=== PATIENT | female | born 2005 | race Caucasian/White ===

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

== ENCOUNTER 2024-06-20 19:19 | Emergency (ER) | payer MEDICAID, SELFPAY ==
[2024-06-20 19:25] VITALS: BP 108/74; PULSE 98; RESP 16; TEMP 36.7; O2SAT 98; BMI 29.7
[2024-06-20 19:54] LABS: Basophils % 0.1 %; Eosinophils # 0.1 10^3/uL (0.0-0.8); Eosinophils % 0.6 %; Hematocrit 36.8 % (36-47); Lymphocytes # 0.9 10^3/uL (1.5-6.5); Lymphocytes % 10.5 %; Mean Corpuscular HGB Conc 35.3 g/dL (30-55); Mean Corpuscular Hemoglobin 31.2 pg (27-33); Mean Corpuscular Volume 88.2 fl (85-98); Mean Platelet Volume 10.1 fL (7.4-10.4); Monocytes # 0.4 10^3/uL (0.2-0.9); Monocytes % 4.3 %; Neutrophils % 84.1 %; Nucleated Red Blood Cells % 0 %; Platelet Count 234 10^3/cmm (157-399); Red Blood Count 4.17 10^6/uL (3.85-5.65); Red Cell Distribution Width 12.6 % (12.1-15.1); White Blood Count 8.92 10^3/uL (4.5-13.0)
[2024-06-20 20:23] LABS: Alanine Aminotransferase 48 U/L (0-33); Alkaline Phosphatase 89 U/L (35-105); Anion Gap 15.6 (5-19); Aspartate Amino Transferase 30 U/L (0-32); Blood Urea Nitrogen 6 mg/dL (6-20); Calcium 8.9 mg/dL (8.5-10.5); Carbon Dioxide 22 mmol/L (22-29); Chloride 101 mmol/L (98-107); Creatinine Clr Calc Pharmacy 155.4888; Globulin 3.3 g/dL (1.3-4.6); Glomerular Filtration Rate 157.3 mL/min (90-130); Glucose 75 mg/dL (65-115); Osmolality Calculated 276 mOsm/kg (285-295); Potassium 3.6 mmol/L (3.5-5.1); Sodium 135 mmol/L (136-145); Total Bilirubin 0.4 mg/dL (0.15-1.2); Total Protein 7.3 g/dL (6.6-8.7)
[2024-06-20 21:00] VITALS: BP 117/81; PULSE 76; RESP 16; O2SAT 100
--- NOTE | 2024-06-20 21:02 | ED_ITS ---
HPI - Abdominal Pain 2 General: Chief Complaint: Abdominal Pain Stated Complaint: Cramping, 13 wks preg Time Seen by Provider: 06/20/24 20:36 Source: patient Mode of arrival: ambulatory Limitations: no limitations History of Present Illness: 19-year-old female who is currently 13 w eeks states over the last few days been having diarrhea states she is felt dehydrated has had some abdominal cramping send mild headache. She denies any severe pain denies any vaginal bleeding. Denies any fevers Associated Symptoms: Reports diarrhea; Denies chills, fever(s), nausea and vomiting Related Data Previous Rx's Medication Instructions Recorded amoxicillin 500 mg capsule 500 mg PO BID #14 caps 07/07/23 Allergies Allergy/AdvReac Type Severity Reaction Status Date / Time No Known Allergies Allergy Verified 06/20/24 19:30 Review of Systems 2 Const: Denies: fever(s), chills, body aches or change in appetite ENMT: Denies: throat pain or dental pain Card: Denies: chest pain Resp: Denies: dyspnea GI: Reports: abdominal pain and diarrhea; Denies: nausea or vomiting Musc: Denies: neck pain or back pain Skin/Breast: Denies: rash Neuro: Denies: headache(s) PFSH ED 2 PFSH: Medical History Chest wall pain, chronic Well adult health check Surgical History No pertinent past surgical history Family History Father No problems noted. Mother Bicuspid aortic valve Social History Smoking and tobacco/nicotine status: former use of tobacco/nicotine Quit status (tobacco/nicotine): has quit using Second hand smoke exposure: No Alcohol intake: never Substance/Drug Use: never Current gender identity: Female Physical Exam 2 Const: COMMON NORMALS: no acute distress, patient oriented x3 and healthy appearing HENMT: COMMON NORMALS: normocephalic and atraumatic HEAD & SCALP: n ormocephalic and atraumatic Eye: COMMON NORMALS: conjunctivae normal CONJUNCTIVA: Yes conjunctivae normal Neck/C-Spine: COMMON NORMALS: full ROM and supple Chest: COMMONS NORMALS: normal inspection of the chest Resp: COMMON NORMALS: normal respiratory effort Cardio: COMMON NORMALS: regular rate, regular rhythm and No murmurs present (Cardio) RATE: regular rate RHYTHM: regular rhythm GI: COMMON NORMALS: Normal to inspection, nondistended, normoactive bowel sounds present, Soft to palpation, non-tender and no masses PALPATION: Yes Soft to palpation Extremity: COMMON NORMALS: normal to inspection and full ROM Neuro: COMMON NORMALS: patient oriented x3, moves all extremities and no focal motor deficits Psych: COMMON NORMALS: mental status grossly normal, Normal thought process present and cooperative THOUGHT PROCESS: Normal thought process present Skin: COMMON NORMALS: no rashes or lesions noted and no wounds GENERAL SKIN EXAM: no rashes or lesions noted Course 2 Vital Signs: Vital signs: Vital Signs Temperature 98.1 F 06/20/24 19:25 Pulse Rate 84 06/20/24 21:46 Respiratory Rate 16 06/20/24 21:46 Blood Pressure 111/82 06/20/24 21:46 Pulse Oximetry 100 06/20/24 21:46 Oxygen Delivery Me thod Room Air 06/20/24 21:46 MDM - Abdominal Pain Medical Decision Making Patient presents here with cramping in her abdominal exam is benign for some slight diarrhea as well she feels improved after IV fluids bedside ultrasound showed IUP heart rate 146 patient stable for discharge follow- up PCP return if worsening Medical Records I reviewed the patient's medical records. Lab Data I reviewed the patient's lab results. 06/20/24 19:45 06/20/24 19:45 Labs/Radiology: Laboratory Results WBC 8.92 10^3/uL (4.5-13.0) 06/20/24 19:45 RBC 4.17 10^6/uL (3.85-5.65) 06/20/24 19:45 Hgb 13.00 g/dL (12.4-14.8) 06/20/24 19:45 Hct 36.8 % (36-47) 06/20/24 19:45 MCV 88.2 fl (85-98) 06/20/24 19:45 MCH 31.2 pg (27-33) 06/20/24 19:45 MCHC 35.3 g/dL (30-55) 06/20/24 19:45 RDW 12.6 % (12.1-15.1) 06/20/24 19:45 Plt Count 234 10^3/cmm (157-399) 06/20/24 19:45 MPV 10.1 fL (7.4-10.4) 06/20/24 19:45 Neut % (Auto) 84.1 % 06/20/24 19:45 Lymph % (Auto) 10.5 % 06/20/24 19:45 [place] % (Auto) 4.3 % 06/20/24 19:45 Eos % (Auto) 0.6 % 06/20/24 19:45 Baso % (Auto) 0.1 % 06/20/24 19:45 Neut # (Auto) 7.50 10^3/uL (1.8-8.0) 06/20/24 19:45 Lymph # (Auto) 0.9 10^3/uL (1.5-6.5) L 06/20/24 19:45 [place] # (Auto) 0.4 10^3/uL (0.2-0.9) 06/20/24 19:45 Eos # (Auto) 0.1 10^3/uL (0.0-0.8) 06/20/24 19:45 Baso # (Auto) 0.0 10^3/uL (0.0-0.1) 06/20/24 19:45 Nucleated RBC % (auto) 0 % 06/20/24 19:45 Nucleated RBCs # 0.0 /100WBC 06/20/24 19:45 Sodium 135 mmol/L (136-145) L 06/20/24 19:45 Potassium 3.6 mmol/L (3.5-5.1) 06/20/24 19:45 Chloride 101 mmol/L (98-107) 06/20/24 19:45 Carbon Dioxide 22 mmol/L (22-29) 06/20/24 19:45 Anion Gap 15.6 (5-19) 06/20/24 19:45 BUN 6 mg/dL (6-20) 06/20/24 19:45 Creatinine 0.5 mg/dL (0.5-0.9) 06/20/24 19:45 GFR Calculation 157.3 mL/min (90-130) H 06/20/24 19:45 Glucose 75 mg/dL (65-115) 06/20/24 19:45 Calculated Osmolality 276 mOsm/kg (285-295) L 06/20/24 19:45 Calcium 8.9 mg/dL (8.5-10.5) 06/20/24 19:45 Total Bilirubin 0.4 mg/dL (0.15-1.2) 06/20/24 19:45 AST 30 U/L (0-32) 06/20/24 19:45 ALT 48 U/L (0-33) H 06/20/24 19:45 Alkaline Phosphatase 89 U/L (35-105) 06/20/24 19:45 Total Protein 7.3 g/dL (6.6-8.7) 06/20/24 19:45 Albumin 4.0 g/dL (3.5-5.2) 06/20/24 19:45 Globulin 3.3 g/dL (1.3-4.6) 06/20/24 19:45 Ser , Semi-Qnt 363749.00 mIU/mL 06/20/24 19:45 Urine Color Yellow (Yellow) 06/20/24 20:57 Urine Appearance Clear (CLEAR) 06/20/24 20:57 Urine pH 7.0 (5-7) 06/20/24 20:57 Ur Specific [place] 1.019 (1.005-1.030) 06/20/24 20:57 Urine Protein Trace (Negative) A 06/20/24 20:57 Urine Glucose (UA) Negative (Normal) 06/20/24 20:57 Urine Ketones Negative (Negative) 06/20/24 20:57 Urine Blood Negative (Negative) 06/20/24 20:57 Urine Nitrate Negative (Negative) 06/20/24 20:57 Urine Bilirubin Negative (Negative) 06/20/24 20:57 Urine Urobilinogen 1.0 mg/dL (Negative) 06/20/24 20:57 Ur Leukocyte Esterase 1+ (Negative) A 06/20/24 20:57 Urine RBC 0-2 /hpf (0-2) 06/20/24 20:57 Urine WBC 0-5 /hpf (0-5) 06/20/24 20:57 Ur Squamous Epith Cells 6-10 /hpf (0-5) 06/20/24 20:57 Amorphous Sediment Not Reportable 06/20/24 20:57 Urine Bacteria Trace /hpf (NONE) 06/20/24 20:57 Hyaline Casts 0.40 /lpf 06/20/24 20:57 Blood Type O Positive 06/20/24 19:45 Rho(D) Type Rh positive 06/20/24 19:45 Antibody Screen Negative 06/20/24 19:45 No radiology studies performed this visit Discharge Plan Discharge Patient Disposition: Home Clinical Impression: Diarrhea, Abdominal pain affecting Condition: Stable Prescriptions: No Action amoxicillin 500 mg capsule 500 mg PO BID Qty: 14 0RF Discharge Orders: Discharge ED (Routine); Ordered 06/20/24 Ordered By: Nanette Oro Referrals: Mukesh Hope MD [Primary Care Provider] - 4-7 days Discharge Diet: Advance as tolerated Discharge Activity: Resume usual activity Patient Instructions: Acute Diarrhea (ED), Abdominal Pain (ED) Coding Level of Care Code 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
[2024-06-20 21:08] LABS: Bilirubin Urine Negative (Negative); Blood Urine Negative (Negative); Glucose Urine UA Negative (Normal); Ketones Urine Negative (Negative); Leukocyte Esterase Urine 1+ (Negative); Nitrate Urine Negative (Negative); Protein Urine Trace (Negative); Specific Gravity, Urine 1.019 (1.005-1.030); Urine Appearance Clear (CLEAR); Urine Color Yellow (Yellow)
[2024-06-20 21:13] LABS: Add Urine Microscopic? YES; Bacteria Urine Trace /hpf; RBC Urine 0-2 /hpf (0-2); WBC Urine 0-5 /hpf (0-5)
[2024-06-20] MEDS: sodium chloride 0.9% 1,000 ML 999 ML IV (21:35)
[2024-06-20] MEDS: metoclopramide 5 mg/mL SDV 2 mL 10 MG IVP (21:37)
[2024-06-20] MEDS: diphenhydrAMINE 50 mg/mL SDV 1mL IVP (21:40)
[2024-06-20 21:46] VITALS: BP 111/82; PULSE 84; RESP 16; O2SAT 100
[2024-06-20 22:42] VITALS: BP 112/68; PULSE 79; RESP 16; O2SAT 100
== END 2024-06-20 22:42 | disposition home or self-care (01) ==
PROVIDERS: Emergency Provider Emergency Medicine; PCP Family Medicine Adult Medicine
DX: O26.891 Other specified pregnancy related conditions, first trimester (principal); Z3A.13 13 weeks gestation of pregnancy; R10.9 Unspecified abdominal pain; R19.7 Diarrhea, unspecified; Z87.891 Personal history of nicotine dependence
CPT/HCPCS: 36415; 80053; 81001; 84702; 85025; 86850; 86900; 96361; 96374; 96375; 99284; J1200; J2765; J7030

== ENCOUNTER 2024-07-29 12:29 | Emergency (ER) | payer MEDICAID, SELFPAY ==
--- NOTE | 2024-07-29 12:31 | USCV_ITS ---
Randa Garner Age: 19 Gender: F : 2005 Exam Date: 07/29/2024 13:24 Ordering Phys: Nanette Oro MD Technologist: R Exam Location: [facility] [place]_ Indication: lt leg swelling PROCEDURES: Venous duplex imaging was performed in only the left lower extremity. The following venous structures were evaluated: common femoral vein, profunda vein, proximal portion of the greater saphenous vein, superficial femoral vein, and the popliteal vein. In addition, the posterior tibial and peroneal trunk were evaluated. FINDINGS: Normal 2-D Doppler and augmentation and compressibility throughout the lower extremity venous structures. Additional imaging through the proximal calf veins also reveals no thrombus. Limited evaluation of the greater saphenous vein is patent with no thrombus. CONCLUSIONS No DVT left lower extremity. Dr. Dulce Maria Ibarra DO (Electronically Signed) Final Date: 29 July 2024 15:45 S
[2024-07-29 12:37] VITALS: BP 108/67; TEMP 36.7; O2SAT 100; BMI 30.2
[2024-07-29 13:07] VITALS: BP 113/72; PULSE 101; RESP 16; O2SAT 99
[2024-07-29 13:48] VITALS: BP 105/63; PULSE 91; RESP 16; O2SAT 98
[2024-07-29 14:40] VITALS: BP 98/67; PULSE 85; RESP 16; O2SAT 99
[2024-07-29 15:01] LABS: Bilirubin Urine 1+ (Negative); Blood Urine Negative (Negative); Glucose Urine UA Negative (Normal); Ketones Urine Trace (Negative); Leukocyte Esterase Urine 2+ (Negative); Nitrate Urine Positive (Negative); Protein Urine 1+ (Negative); Specific Gravity, Urine 1.029 (1.005-1.030); Urine Appearance Cloudy (CLEAR)
--- NOTE | 2024-07-29 15:05 | W.ED.EXTPRO ---
HPI - Extremity Problem General: Chief complaint: Extremity Problem,Nontraumatic Stated complaint: leg swelling & Knots 19 weeks preg Time Seen by Provider: 07/29/24 13:01 Source: patient Mode of arrival: ambulatory Limitations: no limitations History of Present Illness: Patient is a 19-year-old female who is 19 weeks who presents to the emergency department complaining of bilateral anterior dominguez pain and swelling for the past couple of weeks. Initially this began to her left anterior dominguez, was consistent with a bruise but is slowly gotten more widespread, tender to palpation, and erythematous. She has never had an issue like this before. States that she has not had any complications with her up to this point, aside from an elevated blood pressure with her last OB visit. Additionally at this time she is reporting a minor headache. She has not taken anything for her leg symptoms or tried anything at home. Denies any recent prolonged car rides or flights, and has no reportable or clinical history of blood clots. No history of blood clots. She is not having any shortness of breath, chest pain, abdominal pain, vaginal bleeding, or other symptoms at this time. MD Complaint: extremity pain and extremity swelling Onset (ago): week(s) Pain Consistency: constant Location: left, right and lower extremity Associated symptoms: Deny chest pain, fever(s) or rash Related Data Previous Rx's Medication Instructions Recorded amoxicillin 500 mg capsule 500 mg PO BID #14 caps 07/07/23 nitrofurantoin 100 mg PO BID 10 days #20 caps 07/29/24 monohydrate/macrocrystals 100 mg capsule (Macrobid) Allergies Allergy/AdvReac Type Severity Reaction Status Date / Time No Known Allergies Allergy Verified 07/29/24 12:42 Review of Systems General: Reports: 10 or more systems reviewed and unremarkable except in HPI and below Const: Denies: fever(s) or chills Card: Denies: chest pain Resp: Denies: dyspnea GI: Denies: abdominal pain, nausea, vomiting or diarrhea Musc: Reports: extremity pain (Bilateral shins) and extremity swelling (Bilateral dominguez); Denies: joint pain Skin/Breast: Reports: erythema and non-healing lesions; Denies: rash Neuro: Denies: headache(s) PFSH ED PFSH: Medical History Chest wall pain, chronic Well adult health check Surgical History No pertinent past surgical history Family History Father No problems noted. Mother Bicuspid aortic valve Social History Smoking and tobacco/nicotine status: former use of tobacco/nicotine Quit status (tobacco/nicotine): has quit using Second hand smoke exposure: No Alcohol intake: never Substance/Drug Use: never Current gender identity: Female Physical Exam Const: COMMON NORMALS: no acute distress, average body habitus, patient oriented x3, no limitations, healthy appearing, alert and well nourished HENMT: COMMON NORMALS: normocephalic and atraumatic HEAD & SCALP: normocephalic and atraumatic Neck/C-Spine: COMMON NORMALS: full ROM, no lymphadenopathy, supple and no meningeal signs Resp: COMMON NORMALS: normal respiratory effort, No use of accessory muscles and clear to auscultation bilaterally AUSCULTATION: clear to auscultation bilaterally Cardio: COMMON NORMALS: regular rate and regular rhythm RATE: regular rate RHYTHM: regular rhythm Extremity: COMMON NORMALS: full ROM and capillary refill normal NARRATIVE EXTREMITY EXAM: DP/PT pulses 2+ bilaterally. No calf tenderness. No pitting edema or varicosities. Neuro: COMMON NORMALS: patient oriented x3 SENSORIUM/ORIENTATION: Yes alert MENINGEAL SIGNS: Yes no meningeal signs Skin: COMMON NORMALS: no wounds and turgor normal NARRATIVE SKIN EXAM: To both anterior shins, there is circumferential erythematous and indurated lesions, left worse than right. These areas are tender to palpation. GENERAL SKIN EXAM: turgor normal Course Vital Signs: Vital signs: Vital Signs Temperature 98.1 F 07/29/24 12:37 Pulse Rate 84 07/29/24 16:06 Respiratory Rate 18 07/29/24 16:06 Blood Pressure 96/57 07/29/24 16:06 Pulse Oximetry 100 07/29/24 16:06 Oxygen Delivery Me thod Room Air 07/29/24 15:25 MDM - Extremity (Nontraumatic) Medical Decision Making Patient presented with skin changes to bilateral shins occurring over the past couple of weeks. She is in her second trimester of . Initially ultrasound was ordered to rule out blood clot in the left lower extremity as this was the worst of the 2 areas, but she had no other physical exam findings of a blood clot. No calf tenderness, pulses palpable distally and symmetrical, and no history of blood clots. Pictures of the rashes were sent to Dr. Farnsworth, chief pharmacist, who states that this appears to be erythema nodosum and can be treated conservatively. Also spoke with on-call OB, Dr. Lemus, who states that he does not believe that this is related to anything to do with . Patient reporting headache and stated that she had high blood pressure with the last visit so labs were obtained here to rule out any preeclampsia, her blood pressures have been normal and no lab findings consistent with the preeclampsia diagnosis, this was also discussed with Dr. Lemus. Informed patient of conservative therapies for her erythema nodosum and for her to follow-up with OB as scheduled. She agrees with plan will be discharged home at this time. Lab Data 07/29/24 15:10 07/29/24 15:10 Laboratory Results WBC 10.92 10^3/uL (4.5-13.0) 07/29/24 15:10 RBC 3.53 10^6/uL (3.85-5.65) L 07/29/24 15:10 Hgb 11.30 g/dL (12.4-14.8) L 07/29/24 15:10 Hct 32.9 % (36-47) L 07/29/24 15:10 MCV 93.2 fl (85-98) 07/29/24 15:10 MCH 32.0 pg (27-33) 07/29/24 15:10 MCHC 34.3 g/dL (30-55) 07/29/24 15:10 RDW 13.3 % (12.1-15.1) 07/29/24 15:10 Plt Count 303 10^3/cmm (157-399) 07/29/24 15:10 MPV 9.6 fL (7.4-10.4) 07/29/24 15:10 Neut % (Auto) 84.0 % 07/29/24 15:10 Lymph % (Auto) 10.6 % 07/29/24 15:10 [place] % (Auto) 4.1 % 07/29/24 15:10 Eos % (Auto) 0.6 % 07/29/24 15:10 Baso % (Auto) 0.2 % 07/29/24 15:10 Neut # (Auto) 9.17 10^3/uL (1.8-8.0) H 07/29/24 15:10 Lymph # (Auto) 1.2 10^3/uL (1.5-6.5) L 07/29/24 15:10 [place] # (Auto) 0.5 10^3/uL (0.2-0.9) 07/29/24 15:10 Eos # (Auto) 0.1 10^3/uL (0.0-0.8) 07/29/24 15:10 Baso # (Auto) 0.0 10^3/uL (0.0-0.1) 07/29/24 15:10 Nucleated RBC % (auto) 0 % 07/29/24 15:10 Nucleated RBCs # 0.0 /100WBC 07/29/24 15:10 Sodium 138 mmol/L (136-145) 07/29/24 15:10 Potassium 4.2 mmol/L (3.5-5.1) 07/29/24 15:10 Chloride 105 mmol/L (98-107) 07/29/24 15:10 Carbon Dioxide 23 mmol/L (22-29) 07/29/24 15:10 Anion Gap 14.2 (5-19) 07/29/24 15:10 BUN 6 mg/dL (6-20) 07/29/24 15:10 Creatinine 0.5 mg/dL (0.5-0.9) 07/29/24 15:10 GFR Calculation 157.3 mL/min (90-130) H 07/29/24 15:10 Glucose 102 mg/dL (65-115) 07/29/24 15:10 Calculated Osmolality 284 mOsm/kg (285-295) L 07/29/24 15:10 Uric Acid 3.9 mg/dL (2.4-5.7) 07/29/24 15:10 Calcium 8.4 mg/dL (8.5-10.5) L 07/29/24 15:10 Total Bilirubin 0.6 mg/dL (0.15-1.2) 07/29/24 15:10 AST 52 U/L (0-32) H 07/29/24 15:10 ALT 67 U/L (0-33) H 07/29/24 15:10 Alkaline Phosphatase 136 U/L (35-105) H 07/29/24 15:10 Total Protein 6.5 g/dL (6.6-8.7) L 07/29/24 15:10 Albumin 3.3 g/dL (3.5-5.2) L 07/29/24 15:10 Globulin 3.2 g/dL (1.3-4.6) 07/29/24 15:10 Urine Color [place] (Yellow) A 07/29/24 14: Urine Appearance Cloudy (CLEAR) A 07/29/24 14: Urine pH 6.0 (5-7) 07/29/24 14:28 Ur Specific [place] 1.029 (1.005-1.030) 07/29/24 14: Urine Protein 1+ (Negative) A 07/29/24 14: Urine Glucose (UA) Negative (Normal) 07/29/24 14:28 Urine Ketones Trace (Negative) 07/29/24 14: Urine Blood Negative (Negative) 07/29/24 14: Urine Nitrate Positive (Negative) A 07/29/24 14: Urine Bilirubin 1+ (Negative) H 07/29/24 14: Urine Urobilinogen 4.0 mg/dL (Negative) H 07/29/24 14:28 Ur Leukocyte Esterase 2+ (Negative) A 07/29/24 14: Urine RBC 3-5 /hpf (0-2) 07/29/24 14:28 Urine WBC 11-20 /hpf (0-5) H 07/29/24 14:28 Ur Squamous Epith Cells 6-10 /hpf (0-5) 07/29/24 14:28 Calcium Oxalate Crystal 15-25 /hpf H 07/29/24 14:28 Amorphous Sediment Not Reportable 07/29/24 14:28 Urine Bacteria 3+ /hpf (NONE) H 07/29/24 14:28 Hyaline Casts 6.61 /lpf 07/29/24 14:28 Ur Random Microalbumin 1 ug/dL (0-20) 07/29/24 14:28 Urine Creatinine 337 mg/dL (28-217) H 07/29/24 14:28 Microalb/Creat Ratio 3 mg/dL (0-20) 07/29/24 14:28 All radiology interpretation(s) finalized by discharge Discharge Plan Discharge Patient Disposition: Home Clinical Impression: Erythema nodosum, Complicated urinary tract infection Condition: Stable Prescriptions: New nitrofurantoin monohyd/m-cryst [Macrobid] 100 mg capsule 100 mg PO BID 10 Days Qty: 20 0RF Rx Instructions: must administer with a meal/food No Action amoxicillin 500 mg capsule 500 mg PO BID Qty: 14 0RF Discharge Orders: Discharge ED (Routine); Ordered 07/29/24 Ordered By: Gavin Mcneal Referrals: Mukesh Hpoe MD [Primary Care Provider] - Patient Instructions: Urinary Tract Infection in (ED) Activity Restrictions/Additional Instructions: Please take Macrobid for your urinary tract infection. Follow up with Dr. Duarte next week for general re-evaluation. Bed rest, compression stockings, cool wet compresses, elevation, and acetaminophen for pain relief in your legs. Please return if you develop any high blood pressures, seizures, or other concerning symptoms you may have. 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
[2024-07-29 15:06] LABS: Add Urine Microscopic? YES; Bacteria Urine 3+ /hpf; Hyaline Casts Urine 6.61 /lpf
[2024-07-29 15:21] LABS: Basophils % 0.2 %; Eosinophils # 0.1 10^3/uL (0.0-0.8); Eosinophils % 0.6 %; Hematocrit 32.9 % (36-47); Lymphocytes # 1.2 10^3/uL (1.5-6.5); Lymphocytes % 10.6 %; Mean Corpuscular HGB Conc 34.3 g/dL (30-55); Mean Corpuscular Volume 93.2 fl (85-98); Mean Platelet Volume 9.6 fL (7.4-10.4); Monocytes # 0.5 10^3/uL (0.2-0.9); Monocytes % 4.1 %; Neutrophils # 9.17 10^3/uL (1.8-8.0); Nucleated Red Blood Cells % 0 %; Platelet Count 303 10^3/cmm (157-399); Red Blood Count 3.53 10^6/uL (3.85-5.65); Red Cell Distribution Width 13.3 % (12.1-15.1); White Blood Count 10.92 10^3/uL (4.5-13.0)
[2024-07-29 15:25] VITALS: BP 100/61; PULSE 83; RESP 16; O2SAT 100
[2024-07-29 15:25] LABS: Creatinine Urine, Random 337 mg/dL (28-217); Microalbum Creatinine Ratio Ur 3 mg/dL (0-20); Microalbumin Random Urine 1 ug/dL (0-20)
[2024-07-29 15:37] LABS: UA Slide Review UA Slide Review Perf; Urine Color Orange (Yellow)
[2024-07-29 15:38] LABS: Add Urine Culture? Yes; Calcium Oxalate Crystals Urine 15-25 /hpf
[2024-07-29 15:43] LABS: Alanine Aminotransferase 67 U/L (0-33); Albumin Level 3.3 g/dL (3.5-5.2); Alkaline Phosphatase 136 U/L (35-105); Anion Gap 14.2 (5-19); Aspartate Amino Transferase 52 U/L (0-32); Blood Urea Nitrogen 6 mg/dL (6-20); Calcium 8.4 mg/dL (8.5-10.5); Carbon Dioxide 23 mmol/L (22-29); Chloride 105 mmol/L (98-107); Creatinine Clr Calc Pharmacy 157.0313; Globulin 3.2 g/dL (1.3-4.6); Glomerular Filtration Rate 157.3 mL/min (90-130); Glucose 102 mg/dL (65-115); Osmolality Calculated 284 mOsm/kg (285-295); Potassium 4.2 mmol/L (3.5-5.1); Sodium 138 mmol/L (136-145); Total Bilirubin 0.6 mg/dL (0.15-1.2); Total Protein 6.5 g/dL (6.6-8.7); Uric Acid 3.9 mg/dL (2.4-5.7)
[2024-07-29 16:06] VITALS: BP 96/57; PULSE 84; RESP 18; O2SAT 100
== END 2024-07-29 16:15 | disposition home or self-care (01) ==
PROVIDERS: Emergency Provider Physician Assistant; PCP Family Medicine Adult Medicine
DX: L52 Erythema nodosum (principal); O23.42 Unspecified infection of urinary tract in pregnancy, second trimester; N39.0 Urinary tract infection, site not specified; Z3A.19 19 weeks gestation of pregnancy; Z87.891 Personal history of nicotine dependence
CPT/HCPCS: 80053; 81001; 82044; 84550; 85025; 87086; 93971; 99284

== ENCOUNTER 2024-10-13 11:25 | Outpatient (CLI) | payer MEDICAID, SELFPAY ==
[2024-10-13 11:25] VITALS: BMI 32.4
[2024-10-13 12:06] LABS: Bilirubin Urine Negative (Negative); Blood Urine Trace (Negative); Glucose Urine UA Negative (Normal); Ketones Urine Negative (Negative); Leukocyte Esterase Urine Trace (Negative); Nitrate Urine Negative (Negative); Protein Urine Trace (Negative); Urine Appearance Clear (CLEAR); Urine Color Yellow (Yellow); Urobilinogen Urine 0.2 mg/dL (Negative); pH Urine 6.5 (5-7)
[2024-10-13 12:11] LABS: Bacteria Urine 2+ /hpf; RBC Urine 0-2 /hpf (0-2)
[2024-10-13 12:15] LABS: Add Urine Culture? No
[2024-10-13 12:21] VITALS: BP 105/67; PULSE 72
== END 2024-10-13 12:35 | disposition home or self-care (01) ==
LOC: OPOB 11:26 → OBGYN 11:26
PROVIDERS: PCP Family Medicine; Visit Provider Family Medicine
DX: O46.90 Antepartum hemorrhage, unspecified, unspecified trimester (principal); Z3A.00 Weeks of gestation of pregnancy not specified
CPT/HCPCS: 81001; 87086; 99211

== ENCOUNTER 2024-11-06 20:09 | Outpatient (CLI) | payer MEDICAID, SELFPAY ==
[2024-11-06] VITALS (11 sets, daily range): BP systolic 109–125; BP diastolic 58–75; PULSE 75–117; RESP 16; O2SAT 100; BMI 33.4
[2024-11-06 21:24] LABS: Bilirubin Urine Negative (Negative); Blood Urine Negative (Negative); Glucose Urine UA 2+ (Normal); Ketones Urine Negative (Negative); Leukocyte Esterase Urine Trace (Negative); Nitrate Urine Negative (Negative); Protein Urine 2+ (Negative); Specific Gravity, Urine 1.028 (1.005-1.030); Urine Appearance Cloudy (CLEAR); Urine Color Yellow (Yellow); Urobilinogen Urine 0.2 mg/dL (Negative); pH Urine 7.5 (5-7)
[2024-11-06 21:29] LABS: Add Urine Microscopic? YES; Bacteria Urine 4+ /hpf; Hyaline Casts Urine 2.87 /lpf; RBC Urine 0-2 /hpf (0-2)
[2024-11-06 21:49] LABS: Squamous Epithelial Cell Urine 21-50 /hpf (0-5); UA Slide Review UA Slide Review Perf
[2024-11-06 21:52] LABS: Basophils % 0.3 %; Eosinophils # 0.2 10^3/uL (0.0-0.8); Hematocrit 31.8 % (36-47); Lymphocytes # 2.1 10^3/uL (1.5-6.5); Lymphocytes % 13.7 %; Mean Corpuscular HGB Conc 34.6 g/dL (30-55); Mean Corpuscular Hemoglobin 30.5 pg (27-33); Mean Corpuscular Volume 88.1 fl (85-98); Mean Platelet Volume 10.6 fL (7.4-10.4); Monocytes % 6.5 %; Neutrophils # 11.76 10^3/uL (1.8-8.0); Neutrophils % 77.7 %; Nucleated Red Blood Cells % 0 %; Platelet Count 262 10^3/cmm (157-399); Red Blood Count 3.61 10^6/uL (3.85-5.65); Red Cell Distribution Width 12.8 % (12.1-15.1); White Blood Count 15.13 10^3/uL (4.5-13.0)
[2024-11-06 22:12] LABS: Albumin Level 3.2 g/dL (3.5-5.2); Alkaline Phosphatase 206 U/L (35-105); Chloride 107 mmol/L (98-107); Potassium 4.1 mmol/L (3.5-5.1); Sodium 141 mmol/L (136-145); Uric Acid 2.9 mg/dL (2.4-5.7)
[2024-11-06 22:16] LABS: UPRO/UCREAT Ratio 0.39 mg/mg CR; Urine Creatinine 119 mg/dL (28-217); Urine Protein Random 47 mg/dL
[2024-11-06 22:27] LABS: Alanine Aminotransferase 37 U/L (0-33); Anion Gap 17.6 (5-19); Aspartate Amino Transferase 23 U/L (0-32); Blood Urea Nitrogen 6 mg/dL (6-20); Calcium 8.5 mg/dL (8.5-10.5); Carbon Dioxide 20 mmol/L (22-29); Creatinine Clr Calc Pharmacy 206.5698; Glomerular Filtration Rate 203.5 mL/min (90-130); Glucose 118 mg/dL (65-115); Osmolality Calculated 287 mOsm/kg (285-295); Total Bilirubin 0.2 mg/dL (0.15-1.2); Total Protein 6.2 g/dL (6.6-8.7)
== END 2024-11-06 23:08 | disposition home or self-care (01) ==
LOC: OPOB 20:14 → OBGYN 20:15
PROVIDERS: PCP Family Medicine; Visit Provider Family Medicine
DX: O26.899 Other specified pregnancy related conditions, unspecified trimester (principal); Z3A.00 Weeks of gestation of pregnancy not specified; R51.9 Headache, unspecified; H53.8 Other visual disturbances
CPT/HCPCS: 36415; 59025; 80053; 81001; 82570; 84156; 84550; 85025; 99211

== ENCOUNTER 2024-11-19 10:35 | Outpatient (CLI) | payer MEDICAID, SELFPAY ==
[2024-11-19 10:35] VITALS: BMI 34.2
[2024-11-19 10:45] VITALS: BP 135/81; PULSE 94
--- NOTE | 2024-11-19 11:05 | USR_ITS ---
PROCEDURE INFORMATION: Exam: US Biophysical Profile Without Non-Stress Test Exam date and time: 11/19/2024 11:45 AM Age: 19 years old Clinical indication: Other: Pre-eclampsia TECHNIQUE: Imaging protocol: US biophysical profile without non-stress testing. COMPARISON: US OB >= 14 weeks fetus [id number] 08/04/2024 1:16 PM FINDINGS: Single live intrauterine in cephalic presentation. heart rate: 131 bpm Amniotic fluid index: DANNA is 13.36 cm. BIOPHYSICAL PROFILE: breathing (BPP): 2 /2 gross body movement (BPP): 2 /2 tone (BPP): 2 /2 Amniotic fluid (BPP): 2 /2 Biophysical profile score (BPP): 8 /8 MATERNAL ANATOMY: Cervix: Cervical length measures 3.6 cm. US/US OB BPP wo NST [id number] IMPRESSION: Single live intrauterine in cephalic presentation. biophysical profile score 8/8.
[2024-11-19 11:22] VITALS: BP 118/73; PULSE 93
[2024-11-19 11:37] LABS: Basophils % 0.2 %; Eosinophils # 0.1 10^3/uL (0.0-0.8); Eosinophils % 0.8 %; Hematocrit 33.7 % (36-47); Lymphocytes # 1.5 10^3/uL (1.5-6.5); Lymphocytes % 11.8 %; Mean Corpuscular HGB Conc 33.5 g/dL (30-55); Mean Corpuscular Hemoglobin 29.7 pg (27-33); Mean Corpuscular Volume 88.5 fl (85-98); Mean Platelet Volume 10.6 fL (7.4-10.4); Monocytes # 0.6 10^3/uL (0.2-0.9); Monocytes % 4.5 %; Neutrophils # 10.53 10^3/uL (1.8-8.0); Neutrophils % 82.1 %; Nucleated Red Blood Cells % 0 %; Platelet Count 264 10^3/cmm (157-399); Red Blood Count 3.81 10^6/uL (3.85-5.65); Red Cell Distribution Width 13.2 % (12.1-15.1); White Blood Count 12.82 10^3/uL (4.5-13.0)
[2024-11-19 11:46] LABS: Bilirubin Urine 1+ (Negative); Blood Urine Negative (Negative); Glucose Urine UA Trace (Normal); Ketones Urine Trace (Negative); Leukocyte Esterase Urine 1+ (Negative); Nitrate Urine Negative (Negative); Protein Urine 2+ (Negative); Urine Appearance Cloudy (CLEAR); Urine Color Dark Yellow (Yellow); pH Urine 5.5 (5-7)
[2024-11-19 11:53] LABS: Alanine Aminotransferase 18 U/L (0-33); Albumin Level 2.9 g/dL (3.5-5.2); Alkaline Phosphatase 208 U/L (35-105); Anion Gap 18.8 (5-19); Aspartate Amino Transferase 17 U/L (0-32); Blood Urea Nitrogen 7 mg/dL (6-20); Calcium 8.8 mg/dL (8.5-10.5); Carbon Dioxide 18 mmol/L (22-29); Chloride 104 mmol/L (98-107); Creatinine Clr Calc Pharmacy 139.4274; Globulin 3.3 g/dL (1.3-4.6); Glomerular Filtration Rate 127.5 mL/min (90-130); Glucose 144 mg/dL (65-115); Osmolality Calculated 285 mOsm/kg (285-295); Potassium 3.8 mmol/L (3.5-5.1); Sodium 137 mmol/L (136-145); Total Bilirubin 0.2 mg/dL (0.15-1.2); Total Protein 6.2 g/dL (6.6-8.7); Uric Acid 4.4 mg/dL (2.4-5.7)
[2024-11-19 12:01] LABS: Urine Creatinine 283 mg/dL (28-217)
[2024-11-19 12:06] LABS: UPRO/UCREAT Ratio 0.34 mg/mg CR; Urine Protein Random 95 mg/dL
[2024-11-19 12:19] VITALS: BP 119/73; PULSE 88
[2024-11-19 12:25] VITALS: BP 114/70; PULSE 86
[2024-11-19 12:33] VITALS: BP 121/77; PULSE 83
[2024-11-19 12:34] LABS: Add Urine Microscopic? YES; Bacteria Urine 1+ /hpf; Hyaline Casts Urine 0-4 /lpf; RBC Urine 0-4 /hpf (0-2); Specific Gravity, Urine 1.032 (1.005-1.030); Squamous Epithelial Cell Urine 15-25 /hpf (0-5); UA Manual Slide Review YES; UA Slide Review UA Slide Review Perf; WBC Urine 0-4 /hpf (0-5)
[2024-11-19 12:48] VITALS: BP 121/75; PULSE 96
== END 2024-11-19 12:55 | disposition home or self-care (01) ==
LOC: OPOB 10:39 → OBGYN 10:41
PROVIDERS: PCP Family Medicine; Visit Provider Family Medicine
DX: O26.899 Other specified pregnancy related conditions, unspecified trimester (principal); Z3A.00 Weeks of gestation of pregnancy not specified
CPT/HCPCS: 36415; 59025; 76819; 80053; 81001; 82570; 84156; 84550; 85025; 99211

== ENCOUNTER 2024-11-26 11:10 | Outpatient (CLI) | payer MEDICAID, SELFPAY ==
[2024-11-26 11:27] VITALS: BP 121/71; PULSE 100
--- NOTE | 2024-11-26 11:29 | US_ITS ---
WS: [id number] BIOPHYSICAL PROFILE AMNIOTIC FLUID HISTORY: pre eclampsia COMPARISON: None available. position: Vertex. Cardiac activity: 123 bpm. Cervix: Not visualized. Obscured by the head. Placenta: Anterior and fundal, no previa or abruption. Placenta grade: 2 Parameters are as follows: Breathin Movement: 2 Tone: 2 Fluid volume: 2 Amniotic Fluid Index: 11.8 cm. US/US OB BPP wo NST 01100 IMPRESSION: 1. Biophysical profile score: 8/8. 2. Normal amniotic fluid. 3. Normal cardiac activity.
[2024-11-26 11:41] VITALS: BMI 34.7
[2024-11-26 11:47] LABS: Basophils % 0.2 %; Eosinophils # 0.1 10^3/uL (0.0-0.8); Eosinophils % 0.5 %; Hematocrit 31.4 % (36-47); Lymphocytes # 1.3 10^3/uL (1.5-6.5); Lymphocytes % 11.1 %; Mean Corpuscular HGB Conc 33.4 g/dL (30-55); Mean Corpuscular Hemoglobin 29.4 pg (27-33); Mean Platelet Volume 10.8 fL (7.4-10.4); Monocytes # 0.5 10^3/uL (0.2-0.9); Monocytes % 4.3 %; Neutrophils # 10.02 10^3/uL (1.8-8.0); Neutrophils % 83.3 %; Nucleated Red Blood Cells % 0 %; Platelet Count 250 10^3/cmm (157-399); Red Blood Count 3.57 10^6/uL (3.85-5.65); White Blood Count 12.03 10^3/uL (4.5-13.0)
[2024-11-26 11:48] VITALS: BP 120/78; PULSE 94
[2024-11-26 12:07] VITALS: BP 118/71; PULSE 99
[2024-11-26 12:22] LABS: Alanine Aminotransferase 18 U/L (0-33); Albumin Level 3.1 g/dL (3.5-5.2); Alkaline Phosphatase 220 U/L (35-105); Aspartate Amino Transferase 27 U/L (0-32); Blood Urea Nitrogen 10 mg/dL (6-20); Carbon Dioxide 19 mmol/L (22-29); Chloride 106 mmol/L (98-107); Globulin 3.5 g/dL (1.3-4.6); Glomerular Filtration Rate 127.5 mL/min (90-130); Glucose 108 mg/dL (65-115); Osmolality Calculated 284 mOsm/kg (285-295); Sodium 137 mmol/L (136-145); Total Bilirubin 0.4 mg/dL (0.15-1.2); Total Protein 6.6 g/dL (6.6-8.7); Uric Acid 4.9 mg/dL (2.4-5.7)
[2024-11-26 12:27] VITALS: BP 123/80; PULSE 86
[2024-11-26 12:32] LABS: Calcium 9.7 mg/dL (8.5-10.5)
[2024-11-26 12:35] LABS: Bilirubin Urine 1+ (Negative); Blood Urine Negative (Negative); Glucose Urine UA Negative (Normal); Ketones Urine Trace (Negative); Leukocyte Esterase Urine 2+ (Negative); Nitrate Urine Negative (Negative); Protein Urine 2+ (Negative); Urine Appearance Turbid (CLEAR); Urine Color Dark Yellow (Yellow); pH Urine 5.5 (5-7)
[2024-11-26 12:37] LABS: Specific Gravity, Urine 1.035 (1.005-1.030)
[2024-11-26 12:44] LABS: Add Urine Microscopic? YES; Calcium Oxalate Crystals Urine 15-25 /hpf; Mucus Urine 1+ /hpf; Squamous Epithelial Cell Urine 25-40 /hpf (0-5); UA Manual Slide Review YES; WBC Urine 15-25 /hpf (0-5)
[2024-11-26 12:45] LABS: Bacteria Urine 1+ /hpf
[2024-11-26 12:50] LABS: Urine Creatinine 274 mg/dL (28-217)
[2024-11-26 12:56] LABS: UPRO/UCREAT Ratio 0.32 mg/mg CR; Urine Protein Random 89 mg/dL
== END 2024-11-26 13:00 | disposition home or self-care (01) ==
LOC: OPOB 11:12 → OBGYN 11:13
PROVIDERS: PCP Family Medicine; Visit Provider Family Medicine
DX: O26.899 Other specified pregnancy related conditions, unspecified trimester (principal); Z3A.00 Weeks of gestation of pregnancy not specified
CPT/HCPCS: 36415; 59025; 76819; 80053; 81001; 82570; 84156; 84550; 85025; 99211

== ENCOUNTER 2024-11-30 11:00 | Outpatient (CLI) | payer MEDICAID, SELFPAY ==
[2024-11-30] VITALS (7 sets, daily range): BP systolic 114–130; BP diastolic 58–79; PULSE 88–110; RESP 16; TEMP 36.4; O2SAT 99; BMI 34.2
--- NOTE | 2024-11-30 11:19 | USR_ITS ---
PROCEDURE INFORMATION: Exam: US Biophysical Profile Without Non-Stress Test Exam date and time: 11/30/2024 11:40 AM Age: 19 years old Clinical indication: Other: Pre clampsia; ; Additional info: Pre eclampsia TECHNIQUE: Imaging protocol: US biophysical profile without non-stress testing. COMPARISON: US OB BPP NST [id number] 11/26/2024 11:53 AM FINDINGS: heart rate: 126 bpm presentation and position: Cephalic presentation. Placenta: Anterior grade 2 placenta. Amniotic fluid index: 11.75 cm BIOPHYSICAL PROFILE: breathing (BPP): 2 out of 2. gross body movement (BPP): 2 out of 2. tone (BPP): 2 out of 2. Amniotic fluid (BPP): 2 out of 2. US/US OB BPP NST 25815 IMPRESSION: Normal biophysical profile score 8/8.
[2024-11-30 11:46] LABS: Basophils % 0.2 %; Eosinophils # 0.1 10^3/uL (0.0-0.8); Eosinophils % 0.5 %; Hematocrit 33.8 % (36-47); Lymphocytes # 0.9 10^3/uL (1.5-6.5); Lymphocytes % 6.9 %; Mean Corpuscular HGB Conc 33.7 g/dL (30-55); Mean Corpuscular Hemoglobin 29.5 pg (27-33); Mean Corpuscular Volume 87.6 fl (85-98); Mean Platelet Volume 10.7 fL (7.4-10.4); Monocytes # 0.5 10^3/uL (0.2-0.9); Monocytes % 4.1 %; Neutrophils # 10.85 10^3/uL (1.8-8.0); Neutrophils % 87.7 %; Nucleated Red Blood Cells % 0 %; Platelet Count 222 10^3/cmm (157-399); Red Blood Count 3.86 10^6/uL (3.85-5.65); Red Cell Distribution Width 13.1 % (12.1-15.1); White Blood Count 12.37 10^3/uL (4.5-13.0)
[2024-11-30 11:56] LABS: Bilirubin Urine 1+ (Negative); Blood Urine Negative (Negative); Glucose Urine UA Negative (Normal); Ketones Urine 1+ (Negative); Leukocyte Esterase Urine 2+ (Negative); Nitrate Urine Positive (Negative); Protein Urine 2+ (Negative); Specific Gravity, Urine 1.028 (1.005-1.030); Urine Appearance Turbid (CLEAR); pH Urine 5.5 (5-7)
[2024-11-30 12:03] LABS: Alanine Aminotransferase 42 U/L (0-33); Albumin Level 3.2 g/dL (3.5-5.2); Alkaline Phosphatase 262 U/L (35-105); Anion Gap 15.7 (5-19); Aspartate Amino Transferase 35 U/L (0-32); Blood Urea Nitrogen 7 mg/dL (6-20); Carbon Dioxide 18 mmol/L (22-29); Chloride 105 mmol/L (98-107); Globulin 3.7 g/dL (1.3-4.6); Glomerular Filtration Rate 127.5 mL/min (90-130); Glucose 98 mg/dL (65-115); Osmolality Calculated 278 mOsm/kg (285-295); Potassium 3.7 mmol/L (3.5-5.1); Sodium 135 mmol/L (136-145); Total Bilirubin 0.4 mg/dL (0.15-1.2); Total Protein 6.9 g/dL (6.6-8.7)
[2024-11-30 12:09] LABS: Add Urine Microscopic? YES; UA Manual Slide Review YES; Urine Color Orange (Yellow)
[2024-11-30 12:10] LABS: Add Urine Culture? No; Amorphous Sediment Urine 4+ /hpf; Bacteria Urine 2+ /hpf; Squamous Epithelial Cell Urine 25-40 /hpf (0-5)
[2024-11-30 12:11] LABS: UPRO/UCREAT Ratio 0.25 mg/mg CR; Urine Creatinine 343 mg/dL (28-217); Urine Protein Random 86 mg/dL
== END 2024-11-30 12:30 | disposition home or self-care (01) ==
LOC: OPOB 11:02 → OBGYN 11:03
PROVIDERS: PCP Family Medicine; Visit Provider Family Medicine
DX: O26.899 Other specified pregnancy related conditions, unspecified trimester (principal); Z3A.00 Weeks of gestation of pregnancy not specified
CPT/HCPCS: 36415; 59025; 76819; 80053; 81001; 82570; 84156; 84550; 85025; 99211

== ENCOUNTER 2024-12-02 15:14 | Inpatient (IN) | payer MEDICAID, SELFPAY ==
[2024-12-02] VITALS (23 sets, daily range): BP systolic 99–139; BP diastolic 57–83; PULSE 71–97; RESP 16; TEMP 35.9–36.2; BMI 35.3
[2024-12-02 16:21] LABS: Basophils % 0.2 %; Eosinophils # 0.1 10^3/uL (0.0-0.8); Hematocrit 30.3 % (36-47); Lymphocytes # 1.4 10^3/uL (1.5-6.5); Lymphocytes % 13.8 %; Mean Corpuscular Hemoglobin 29.9 pg (27-33); Mean Corpuscular Volume 88.1 fl (85-98); Monocytes # 0.4 10^3/uL (0.2-0.9); Monocytes % 4.1 %; Neutrophils # 8.16 10^3/uL (1.8-8.0); Neutrophils % 79.9 %; Nucleated Red Blood Cells % 0 %; Platelet Count 242 10^3/cmm (157-399); Red Blood Count 3.44 10^6/uL (3.85-5.65); Red Cell Distribution Width 13.2 % (12.1-15.1); White Blood Count 10.21 10^3/uL (4.5-13.0)
[2024-12-02] MEDS: miSOPROStol 100 mcg tablet 25 MCG VAGINAL ×2 (16:27→20:58)
[2024-12-02 16:30] LABS: Amphetamines Screen Urine Negative (Negative); Barbiturates Screen Urine Negative (Negative); Benzodiazepines Screen Urine Negative (Negative); Cocaine Screen Urine Negative (Negative); Opiate Screen Urine Negative (Negative); PCP Screen Urine Negative (Negative); THC Screen Urine Negative (Negative)
[2024-12-03] VITALS (26 sets, daily range): BP systolic 111–157; BP diastolic 63–91; PULSE 65–83; RESP 15–18; TEMP 36–36.4
[2024-12-03] MEDS: miSOPROStol 100 mcg tablet 25 MCG VAGINAL ×3 (01:35→17:34)
--- NOTE | 2024-12-03 07:24 | PM.OBGYHP ---
Providers/Chief Complaint Admitting Physician: Farhat Mackenzie MD Primary Care Provider: Farhat Mackenzie MD Chief Complaint: IOL HPI DELIVERY ARCHITECT History of Present Illness Randa Garner is a 19 year old G1, P0 female that presents for induction of labor due to preeclampsia without severe features. Patient has been having significant proteinuria for the last 2 months of her . Patient reports headaches with visual disturbances but her blood pressures have been normal. Otherwise, no other concerns in her . The patient is GBS negative. Present Details : 1 Labs Rubella: Immune RPR: Negative GBS: Negative L&D/Induction Specific History Indication for induction OB: medical complication (Preeclampsia without severe features) Review of Systems General: Reports: 10 or more systems reviewed and unremarkable except in HPI and below Const: Denies: fever(s) or chills Card: Denies: chest pain Resp: Denies: dyspnea GI: Denies: abdominal pain, nausea, vomiting or diarrhea Musc: Reports: extremity pain (Bilateral shins) and extremity swelling (Bilateral dominguez); Denies: joint pain Skin/Breast: Reports: erythema and non-healing lesions; Denies: rash Neuro: Reports: headache(s) Medications/Allergies Home Medications ?Medication ?Instructions ?Recorded ?Confirmed ?Last Taken ?Type No Known Home Medications 11/19/24 11/26/24 Unknown History Allergies Allergy/AdvReac Type Severity Reaction Status Date / Time No Known Allergies Allergy Verified 11/26/24 12:39 PFSH DELIVERY ARCHITECT PFSH: Medical History Chest wall pain, chronic Well adult health check Surgical History No pertinent past surgical history Family History Father No problems noted. Mother Bicuspid aortic valve Social History Smoking and tobacco/nicotine status: former use of tobacco/nicotine Quit status (tobacco/nicotine): has quit using Second hand smoke exposure: No Alcohol intake: never Substance/Drug Use: never Current gender identity: Female Vitals/I&O/Wt Last Vital Signs Temp 96.8 F L 12/03/24 03:21 Pulse 67 12/03/24 06:21 Resp 16 12/02/24 15:32 BP 141/91 12/03/24 06:21 O2 Del Method Room Air 12/02/24 15:30 Weight last 48 hrs Weight 82.1 kg Physical Exam Const: COMMON NORMALS: no acute distress, patient oriented x3, healthy appearing, alert and well nourished Resp: COMMON NORMALS: normal respiratory effort and No retractions Cardio: COMMON NORMALS: no JVD, regular rate and regular rhythm GI: OTHER: Gravid uterus Extremity: COMMON NORMALS: normal to inspection GENERAL: Yes edema (Trace) Neuro: COMMON NORMALS: patient oriented x3, moves all extremities, no focal motor deficits and no sensory deficits noted Psych: COMMON NORMALS: mental status grossly normal, Normal thought process present, cooperative, normal affect and activity/motor behavior normal Skin: COMMON NORMALS: no rashes or lesions noted Data 12/02/24 15:45 Results Labs OB ([facility]): Obstetrics US/Biophysical Profile 11/30/24 Blood Type O Positive 12/02/24 Antibody Screen Negative 12/02/24 Hct 30.3 % (36-47) L 12/02/24 Hgb 10.30 g/dL (12.4-14.8) L 12/02/24 Rho(D) Type Rh positive 12/02/24 Plt Count 242 10^3/cmm (157-399) 12/02/24 Uric Acid 6.0 mg/dL (2.4-5.7) H 11/30/24 Ser , Semi-Qnt 450847.00 mIU/mL 06/20/24 Urine Opiates Screen Negative ng/mL (Negative) 12/02/24 Ur Barbiturates Screen Negative ng/mL (Negative) 12/02/24 Ur Phencyclidine Scrn Negative ng/mL (Negative) 12/02/24 Ur Amphetamines Screen Negative ng/mL (Negative) 12/02/24 U Benzodiazepines Scrn Negative ng/mL (Negative) 12/02/24 Urine Cocaine Screen Negative ng/mL (Negative) 12/02/24 U Marijuana (THC) Screen Negative ng/mL (Negative) 12/02/24 Micro Urine Specimen 10/13/24 A&P Assessment and plan (1) Preeclampsia: The plan is to do Cytotec x 3 then proceeded to Pitocin. The patient is not demonstrating any severe features at this time. Labs and testing has all been appropriate the last several weeks. Qualifiers: Trimester: third trimester Qualified Code(s): O14.93 - Unspecified pre-eclampsia, third trimester (2) 37 weeks gestation of : PDMP PDMP Reviewed: Not Reviewed Attestations Medical Necessity Statement*: Patient admitted for induction of labor. Anticipate greater than 2 midnight stay Coding Level of Care Code Acute Code for Chg Fwd Diagnoses Pre-eclampsia in third trimester O14.93 Trimester: third trimester 37 weeks gestation of Z3A.37
--- NOTE | 2024-12-03 13:15 | ANES.PREANE2 ---
Pre-Anesthetic Assessment Height/Weight: Height 1.52 m Weight 82.1 kg Temp Pulse Resp BP O2 Del Method 96.8 F L 67 16 124/79 Room Air 12/03/24 13:08 12/03/24 13:08 12/02/24 15:32 12/03/24 13:08 12/02/24 15:30 Epidural Familial anesthetic complications: None Was Beta Drew taken within 24 hours: N/A Was Clonidine taken within 24 hours: N/A Social No alcohol and No tobacco (Quit 1 year ago) Exam alert, oriented x 3, clear to auscultation bilaterally and regular rate & rhythm Airway Submandibular: within normal limits Cervical ROM: within normal limits Mallampati: Class III Dentition: full History/ROS No significant history except as noted and No significant complaints Pulmonary Asthma CV/HEM Hypertension None reported Hepatic None reported GI Gastroesophageal Reflux Disease Metabolic None reported Musc/skel None reported Neuropsych None reported Anesthetic Plan ASA status: 2 Anesthesia: Anesthesia Evaluation, General and Regional (specify below) Risk of > 500 ml blood loss (7ml/kg in children): Yes, adequate IV access and fluids planned Medications/Allergies Home Medications ?Medication ?Instructions ?Recorded ?Confirmed ?Last Taken ?Type No Known Home Medications 11/19/24 11/26/24 Unknown History Allergies Allergy/AdvReac Type Severity Reaction Status Date / Time No Known Allergies Allergy Verified 11/26/24 12:39 [facility] Anesthesia Medical History Chest wall pain, chronic Well adult health check Surgical History No pertinent past surgical history Family History Father No problems noted. Mother Bicuspid aortic valve Social History Smoking and tobacco/nicotine status: former use of tobacco/nicotine Quit status (tobacco/nicotine): has quit using Second hand smoke exposure: No Alcohol intake: never Substance/Drug Use: never Current gender identity: Female Female Reproductive History : 1 Data Anesthesia 12/02/24 15:45 Short CBC 12/02/24 Range/Units 15:45 WBC 10.21 (4.5-13.0) 10^3/uL Hgb 10.30 L (12.4-14.8) g/dL Hct 30.3 L (36-47) % MCV 88.1 (85-98) fl Plt Count 242 (157-399) 10^3/cmm Neut % (Auto) 79.9 % Neut # (Auto) 8.16 H (1.8-8.0) 10^3/uL Blood Bank 12/02/24 15:45 Blood Type O Positive Rho(D) Type Rh positive Antibody Screen Negative Cardiac Studies: No Data to Display
[2024-12-03] MEDS: sodium chloride 0.9% 1,000 ML 999 ML IV (20:04)
[2024-12-04] VITALS (135 sets, daily range): BP systolic 105–150; BP diastolic 52–95; PULSE 56–119; TEMP 36.1–36.7; O2SAT 92–100
[2024-12-04] MEDS: sodium chloride 0.9% 1,000 ML 999 ML IV (02:44)
[2024-12-04] MEDS: terbutaline 1 mg/mL INJ 0.25 MG SUBCUT ×2 (02:52→04:30)
--- NOTE | 2024-12-04 05:29 | PM.OBGYPN ---
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 The patient received 3 doses of Cytotec on the first evening after presentation. The patient was rachele minimally so Pitocin was started. Continued Pitocin without significant improvement in contractions or dilation. Another 2 doses of Cytotec was performed and tachysystole did develop. Started having recurrent variables and late which led eventually to decrease in variability. Doses of terbinafine were given with improvement of tachysystole and improvement of heart tones. The patient reports no significant concerns except for being tired. Vital signs have been stable. Labor: Dilation (cm): 2 Station: -3 Amniotic Membrane Status: Intact Monitor Mode: Palpation Contraction Pattern: Regular Status: Category II Vitals/I&O/Wt Last Vital Signs Temp 98.0 F 12/04/24 04:01 Pulse 98 12/04/24 05:23 Resp 16 12/03/24 18:02 BP 115/57 12/04/24 05:08 Pulse Ox 100 12/04/24 05:23 O2 Del Method Room Air 12/02/24 15:30 12/03/24 12/03/24 12/04/24 14:59 22:59 06:59 Intake Total 1000 / 1000 Balance 1000 / 1000 Weight last 48 hrs Weight 82.1 kg Physical Exam Const: COMMON NORMALS: no acute distress, patient oriented x3, healthy appearing, alert and well nourished Neck/C-Spine: COMMON NORMALS: no JVD Resp: COMMON NORMALS: normal respiratory effort and No retractions Cardio: COMMON NORMALS: no JVD, regular rate and regular rhythm RATE: regular rate RHYTHM: regular rhythm GI: OTHER: Gravid uterus Extremity: COMMON NORMALS: normal to inspection GENERAL: Yes edema (Trace) Neuro: COMMON NORMALS: patient oriented x3, moves all extremities, no focal motor deficits and no sensory deficits noted SENSORIUM/ORIENTATION: Yes alert Psych: COMMON NORMALS: mental status grossly normal, Normal thought process present, cooperative, normal affect and activity/motor behavior normal THOUGHT PROCESS: Normal thought process present Skin: COMMON NORMALS: no rashes or lesions noted GENERAL SKIN EXAM: no rashes or lesions noted Data 12/02/24 15:45 A&P Assessment and plan (1) Preeclampsia: The plan is to continue terbinafine if needed for persistent tachysystole, otherwise we will allow time for recovery. At some point we will need to resume Pitocin to see if we can get contraction pattern better and contractions are stronger to make cervical change. Discussed possible with patient including risks and benefits. The patient was open to proceed with if recommended. Qualifiers: Trimester: third trimester Qualified Code(s): O14.93 - Unspecified pre-eclampsia, third trimester (2) 37 weeks gestation of : PDMP PDMP Reviewed: Not Reviewed Attestations Medical Necessity Statement*: Patient admitted for induction of labor. Anticipate greater than 2 midnight stay. Coding Level of Care Code Acute Code for Chg Fwd Diagnoses Pre-eclampsia in third trimester O14.93 Trimester: third trimester 37 weeks gestation of Z3A.37
[2024-12-04] MEDS: dextrose 5%-lactated ringers 1,000 ML 125 ML IV (05:44)
[2024-12-04] MEDS: oxytocin 30 UNIT/500 ML BAG IV (11:15)
[2024-12-04] MEDS: ROPivacaine syringe 100 MG/50 ML SYRINGE 10 MG EPIDURAL (21:26)
--- NOTE | 2024-12-04 21:29 | P.ANESUD_ITS ---
Pre-Anesthetic Update Pre-Anesthetic Assessment: Date of Surgery/Procedure: 12/04/24 Preop Alexandra gnosis: IUP Proposed Procedure: labor epidural Any changes to Pre-Anesthetic Assessment?: No Vitals: Temperature 98.0 F 12/04/24 04:01 Temperature Source Axillary 12/04/24 04:01 Pulse Rate 90 12/04/24 21:26 Pulse Rhythm Regular 12/02/24 15:30 Pulse Strength 3+ Normal 12/02/24 15:30 Respiratory Rate 16 12/03/24 18:02 Respiratory Effort Spontaneous, Non- Labored 12/02/24 15:30 Respiratory Depth Normal 12/02/24 15:30 Respiratory Patter n Normal 12/02/24 15:30 Blood Pressure 133/85 12/04/24 21:23 Pulse Oximetry 97 12/04/24 21:26 Oxygen Delivery Me thod Room Air 12/02/24 15:30 Exam: Pre-Anes Outpt Exam: alert, oriented x 3 and clear to auscultation bilaterally Cardiac Studies: No Data to Display Anesthesia Procedures Epidural: Time Out Performed: Yes Consents Signed: Procedure Consent Consent: requested by attending/covering physician, from patient, risks and benefits reviewed and patient agrees to proceed Lumbar Level: L4-L5 Epidural position: sitting Epidural procedure: sterile prep of area, 1% lidocaine to numb the area, 18 g needle, negative for paresthesia passed, neg for paresthesia, test dose given, 1.5% xylocaine 1:200k epi, 0.2% Ropivacaine bolus ml (5), placed PCEA, no systemic response, sterile dressing applied, L.U.D. no apparent complications and 0.2% Ropiavacaine @ mls/hr (10) Additional Comments: MARCO 7cm, catheter easily threaded to 5cm in the space. 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 VS monitored throughout and remained stable.
[2024-12-05] VITALS (57 sets, daily range): BP systolic 107–179; BP diastolic 63–104; PULSE 53–114; RESP 15–17; TEMP 35.9–37.1; O2SAT 97–100
[2024-12-05] MEDS: dextrose 5%-lactated ringers 1,000 ML 125 ML IV (01:00)
--- NOTE | 2024-12-05 01:14 | P.PN_ITS ---
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 Eventually the patient's uterine contractions did space out, however heart tones were not reassuring. heart tones would have significant decelerations with maternal positioning. Eventually Pitocin was able to be restarted. Patient initially was doing well and started having increasing pain with contractions and opted to proceed with epidural. After epidural we had difficulty with recurrent variables and decelerations and eventually Pitocin had to be stopped. heart tones were affected significantly by maternal positioning. Eventually it was opted to proceed with artificial rupture membranes and placement of IUPC and scalp electrode. Labor: Dilation (cm): 2 Station: -2 Amniotic Membrane Status: R uptured Monitor Mode: External Contraction Pattern: Regular Status: Category II Vitals/I&O/Wt Last Vital Signs Temp 97.0 F L 12/04/24 22:17 Pulse 74 12/05/24 01:02 Resp 16 12/03/24 18:02 BP 131/89 12/05/24 01:02 Pulse Ox 100 12/04/24 23:51 O2 Del Method Room Air 12/02/24 15:30 12/04/24 12/04/24 12/05/24 14:59 22:59 07:59 Intake Total 5.25 / 5.25 11.25 / 16.50 Balance 5.25 / 5.25 11.25 / 16.50 Physical Exam 2 Const: COMMON NORMALS: no acute distress, patient oriented x3, healthy appearing, alert and well nourished Neck/C-Spine: COMMON NORMALS: no JVD Resp: COMMON NORMALS: normal respiratory effort and No retractions Cardio: COMMON NORMALS: no JVD, regular rate and regular rhythm RATE: r egular rate RHYTHM: regular rhythm GI: OTHER: Gravid uterus : MANUAL OB EXAM: dilated (2.5) 2 cm, effaced 75% and station high (-3) Extremity: COMMON NORMALS: normal to inspection GENERAL: Yes edema (Trace) Neuro: COMMON NORMALS: patient oriented x3, moves all extremities, no focal motor deficits and no sensory deficits noted SENSORIUM/ORIENTATION: Yes alert Psych: COMMON NORMALS: mental status grossly normal, Normal thought process present, cooperative, normal affect and activity/motor behavior normal T HOUGHT PROCESS: Normal thought process present Skin: COMMON NORMALS: no rashes or lesions noted GENERAL SKIN EXAM: no rashes or lesions noted Urinary Catheter Management: Caballero: Cath Placed During This Visit: yes Urinary Catheter Date of Insertion: 12/04/24 Urinary Catheter Time of Insertion: 22:14 Data 12/02/24 15:45 A&P Assessment and plan (1) Preeclampsia: Blood pressures have been appropriate. Qualifiers: Trimester: third trimester Qualified Code(s): O14.93 - Unspecified pre- eclampsia, third trimester (2) 37 weeks gestation of : (3) Non-reassuring heart tones complicating , antepartum: Artificial rupture membranes was performed with amnio hook without difficulty. There was moderate amount of clear fluid noted. After artificial rupture membranes was completed scalp electrode was placed without difficulty. Intrauterine pressure catheter was then and started to an appropriate depth. Now that we have advanced monitoring in place we will closely monitor heart tones and uterine pressure. We will start adjusting Pitocin when appropriate heart tones are achieved. Hopefully between artificial rupture membranes and appropriate pressure monitoring we will achieve progression of labor. PDMP PDMP Reviewed: Not Reviewed Attestations 2 Medical Necessity Statement*: Patient admitted for induction of labor. Anticipate greater than 2 midnight stay. Coding Level of Care Code Acute Code for Chg Fwd Diagnoses Pre-eclampsia in third trimester O14.93 Trimester: third trimester 37 weeks gestation of Z3A.37 Non-reassuring heart tones complicating , antepartum O36.8390
[2024-12-05] MEDS: ROPivacaine syringe 100 MG/50 ML SYRINGE 10 MG EPIDURAL ×2 (03:10→07:42)
[2024-12-05] MEDS: oxytocin 30 UNIT/500 ML BAG 5 UNIT IV (07:30)
--- NOTE | 2024-12-05 10:28 | PM.DELIVERY ---
Delivery Note: Date of delivery: December 05, 2024 Pre-delivery diagnoses: Preeclampsia without severe features, term intrauterine Post-delivery diagnoses: Same, viable female Delivering Physician: Farhat Bender Estimated blood loss (mL): 300 Post Delivery Diagnoses: Preeclampsia: Qualifiers: Trimester: third trimester Qualified Code(s): O14.93 - Unspecified pre-eclampsia, third trimester Pre-Delivery Course: This is a 19-year-old that presented at 37 weeks 1 day for induction of labor due to preeclampsia without severe features. Patient initially was started on Cytotec and then transition over to Pitocin without significant advancement and dilation. Cytotec was restarted and the patient developed heart tone concerns as well as tachysystole. Terbinafine was given at this time which did help. Patient was able to be restarted on Pitocin, however additional heart tone issues were noted. At this time artificial rupture of membranes was performed and IUPC and FSE was placed. Pitocin was able to be restarted and the patient advanced as expected to completion at that time. Delivery: Patient was completely dilated patient was placed into the normal lithotomy position and started pushing with contractions. After pushing for approximately 45 minutes the patient delivered the infant's head followed by shoulder and body without difficulty. was placed on mother's abdomen and after delay the cord was clamped and cut. Cord blood was obtained. Placenta was then delivered soon after. Review of the perineum did not demonstrate any significant tear, however the patient did have a first-degree periurethral tear that was oozing blood. This was repaired with 3-0 chromic. To the procedure that the bleeding was controlled and uterus was firm. Post-Delivery Status: Stable A&P Assessment and plan (1) Preeclampsia: No significant signs or symptoms suggestive of severe features. Qualifiers: Trimester: third trimester Qualified Code(s): O14.93 - Unspecified pre-eclampsia, third trimester (2) Vaginal delivery: Proceed with routine care. PDMP PDMP Reviewed: Not Reviewed Coding Level of Care Code Acute Code for Chg Fwd Diagnoses Pre-eclampsia in third trimester O14.93 Trimester: third trimester Vaginal delivery O80
[2024-12-05] MEDS: benzocaine-menthol 78 gm Canister 1 SPRAY TOPICAL (13:29)
[2024-12-05] MEDS: lanolin oint 7 gm 1 APPLIC TOPICAL (13:29)
[2024-12-05 15:14] LABS: Basophils % 0.2 %; Eosinophils % 0.1 %; Hematocrit 30.1 % (36-47); Lymphocytes # 1.3 10^3/uL (1.5-6.5); Lymphocytes % 6.7 %; Mean Corpuscular HGB Conc 33.6 g/dL (30-55); Mean Corpuscular Hemoglobin 29.2 pg (27-33); Mean Platelet Volume 10.9 fL (7.4-10.4); Monocytes % 5.1 %; Neutrophils # 16.29 10^3/uL (1.8-8.0); Neutrophils % 86.9 %; Nucleated Red Blood Cells % 0 %; Platelet Count 250 10^3/cmm (157-399); Red Blood Count 3.46 10^6/uL (3.85-5.65); Red Cell Distribution Width 13.1 % (12.1-15.1); White Blood Count 18.75 10^3/uL (4.5-13.0)
[2024-12-05 15:16] LABS: Bilirubin Urine Negative (Negative); Blood Urine 3+ (Negative); Glucose Urine UA Negative (Normal); Ketones Urine Negative (Negative); Leukocyte Esterase Urine 1+ (Negative); Nitrate Urine Negative (Negative); Protein Urine 1+ (Negative); Specific Gravity, Urine 1.012 (1.005-1.030); Urine Appearance Clear (CLEAR); pH Urine 5.5 (5-7)
[2024-12-05 15:18] LABS: Add Urine Microscopic? YES; Hyaline Casts Urine 4.11 /lpf; RBC Urine 51-100 /hpf (0-2); Squamous Epithelial Cell Urine 0-5 /hpf (0-5); WBC Urine 21-50 /hpf (0-5)
[2024-12-05 15:30] LABS: UA Slide Review UA Slide Review Perf; Urine Color Orange (Yellow)
[2024-12-05 15:30] LABS: Alanine Aminotransferase 113 U/L (0-33); Albumin Level 2.3 g/dL (3.5-5.2); Alkaline Phosphatase 206 U/L (35-105); Anion Gap 15.8 (5-19); Aspartate Amino Transferase 74 U/L (0-32); Carbon Dioxide 16 mmol/L (22-29); Chloride 110 mmol/L (98-107); Creatinine Clr Calc Pharmacy 121.7119; Glomerular Filtration Rate 106.7 mL/min (90-130); Glucose 86 mg/dL (65-115); Potassium 3.8 mmol/L (3.5-5.1); Sodium 138 mmol/L (136-145); Total Bilirubin 0.7 mg/dL (0.15-1.2); Total Protein 5.3 g/dL (6.6-8.7); Uric Acid 6.3 mg/dL (2.4-5.7)
[2024-12-05 15:31] LABS: Add Urine Culture? Yes; Amorphous Sediment Urine 1+ /hpf; Bacteria Urine 2+ /hpf
[2024-12-05 15:35] LABS: Blood Urea Nitrogen 7 mg/dL (6-20); Calcium 8.3 mg/dL (8.5-10.5); Osmolality Calculated 279 mOsm/kg (285-295)
[2024-12-05 15:35] LABS: Urine Creatinine 95 mg/dL (28-217)
[2024-12-05 15:36] LABS: UPRO/UCREAT Ratio 0.43 mg/mg CR; Urine Protein Random 41 mg/dL
[2024-12-05] MEDS: labetalol 200 mg Tablet 100 MG PO ×2 (16:10→22:20)
[2024-12-06] VITALS (25 sets, daily range): BP systolic 123–173; BP diastolic 71–101; PULSE 60–81; RESP 15–16; TEMP 36.5–36.9; O2SAT 95–99
[2024-12-06 06:32] LABS: Basophils % 0.2 %; Eosinophils % 0.2 %; Hematocrit 29.5 % (36-47); Lymphocytes # 1.6 10^3/uL (1.5-6.5); Mean Corpuscular HGB Conc 33.6 g/dL (30-55); Mean Corpuscular Hemoglobin 29.4 pg (27-33); Mean Corpuscular Volume 87.5 fl (85-98); Mean Platelet Volume 10.8 fL (7.4-10.4); Monocytes % 6.2 %; Neutrophils # 12.87 10^3/uL (1.8-8.0); Neutrophils % 82.5 %; Nucleated Red Blood Cells % 0 %; Platelet Count 216 10^3/cmm (157-399); Red Blood Count 3.37 10^6/uL (3.85-5.65); Red Cell Distribution Width 13.1 % (12.1-15.1); White Blood Count 15.59 10^3/uL (4.5-13.0)
[2024-12-06 06:48] LABS: Urine Creatinine 82 mg/dL (28-217)
[2024-12-06 06:50] LABS: Alanine Aminotransferase 92 U/L (0-33); Albumin Level 2.3 g/dL (3.5-5.2); Alkaline Phosphatase 333 U/L (35-105); Anion Gap 13.9 (5-19); Aspartate Amino Transferase 56 U/L (0-32); Blood Urea Nitrogen 6 mg/dL (6-20); Calcium 8.1 mg/dL (8.5-10.5); Carbon Dioxide 18 mmol/L (22-29); Chloride 107 mmol/L (98-107); Creatinine Clr Calc Pharmacy 106.4979; Glomerular Filtration Rate 91.4 mL/min (90-130); Glucose 84 mg/dL (65-115); Osmolality Calculated 277 mOsm/kg (285-295); Potassium 3.9 mmol/L (3.5-5.1); Sodium 135 mmol/L (136-145); Total Bilirubin 0.4 mg/dL (0.15-1.2); Total Protein 5.3 g/dL (6.6-8.7); Uric Acid 6.8 mg/dL (2.4-5.7)
[2024-12-06 06:50] LABS: UPRO/UCREAT Ratio 0.26 mg/mg CR; Urine Protein Random 21 mg/dL
[2024-12-06] MEDS: dextrose 5%-lactated ringers 1,000 ML 75 ML IV ×2 (06:50→20:10)
[2024-12-06] MEDS: magnesium sulfate premix 4 GM/100 ML PREMIX IV (06:50)
[2024-12-06] MEDS: labetalol 5 mg/mL SDV 20mL 20 MG IVP (06:54)
[2024-12-06 06:58] LABS: Bilirubin Urine Negative (Negative); Blood Urine Negative (Negative); Glucose Urine UA Negative (Normal); Ketones Urine Negative (Negative); Leukocyte Esterase Urine Trace (Negative); Nitrate Urine Negative (Negative); Protein Urine Trace (Negative); Urine Appearance Clear (CLEAR); Urine Color Yellow (Yellow)
[2024-12-06 07:00] LABS: Add Urine Microscopic? YES; Bacteria Urine None Seen /hpf; Hyaline Casts Urine 0.81 /lpf; RBC Urine 0-2 /hpf (0-2); Squamous Epithelial Cell Urine 0-5 /hpf (0-5)
[2024-12-06] MEDS: magnesium sulfate premix 20 GM/500 ML BAG IV ×2 (07:10→17:15)
[2024-12-06 07:11] LABS: Add Urine Culture? No
--- NOTE | 2024-12-06 07:40 | P.PN_ITS ---
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 Patient had elevated blood pressure last night and was started on labetalol. Labs were obtained and showed persistent proteinuria and mildly elevated liver enzymes. This morning the patient had several severe blood pressures magnesium was started. Labs had improved this morning with no concerning liver enzyme elevations. Labor: Dilation (cm): 2 Station: +2 Amniotic Membrane Status: R uptured Monitor Mode: External Contraction Pattern: Irregular Uterine Tone Measurement: 40 Status: Category II Post /CS: Patient comments OB post-: no complaints and tolerating diet [place] baby status: doing well and nursing well [place] feeding status: exclusively breast feeding Vitals/I&O/Wt Last Vital Signs Temp 98.5 F 12/06/24 06:00 Pulse 68 12/06/24 07:10 Resp 16 12/06/24 06:00 BP 149/94 12/06/24 07:10 Pulse Ox 97 12/06/24 06:00 O2 Del Method Room Air 12/06/24 06:00 12/05/24 12/06/24 12/06/24 22:59 06:59 14:59 Output Total 300 / 300 Balance -300 / 2254.150 Physical Exam 2 Const: COMMON NORMALS: no acute distress, patient oriented x3, healthy appearing, alert and well nourished Neck/C-Spine: COMMON NORMALS: no JVD Resp: COMMON NORMALS: normal respiratory effort and No retractions Cardio: COMMON NORMALS: no JVD, regular rate and regular rhythm RATE: r egular rate RHYTHM: regular rhythm GI: OTHER: Uterus firm and below umbilicus Extremity: COMMON NORMALS: normal to inspection GENERAL: Yes edema (Trace) Neuro: COMMON NORMALS: patient oriented x3, moves all extremities, no focal motor deficits and no sensory deficits noted SENSORIUM/ORIENTATION: Yes alert Psych: COMMON NORMALS: mental status grossly normal, Normal thought process present, cooperative, normal affect and activity/motor behavior normal T HOUGHT PROCESS: Normal thought process present Skin: COMMON NORMALS: no rashes or lesions noted GENERAL SKIN EXAM: no rashes or lesions noted Urinary Catheter Management: Caballero: Cath Placed During This Visit: yes, but has since been removed by the nurse Reason for Continuing Indwelling Catheter: Decision to DC Catheter Urinary Catheter Date of Insertion: 12/04/24 Urinary Catheter Time of Insertion: 22:14 Date Urinary Catheter Removed: 12/05/24 Time Urinary Catheter Discontinued: 09:30 Data 12/06/24 06:10 12/06/24 06:10 A&P Assessment and plan (1) Preeclampsia: The patient has developed preeclampsia with severe features. Magnesium has been started. We will continue with labetalol protocol to manage blood pressures. Qualifiers: Trimester: third trimester Qualified Code(s): O14.93 - Unspecified pre- eclampsia, third trimester (2) Vaginal delivery: Patient had a periurethral tear and we will avoid Caballero catheter if possible. Otherwise no significant concerns besides preeclampsia. PDMP PDMP Reviewed: Not Reviewed Attestations 2 Medical Necessity Statement*: The patient was admitted for induction of labor and will have prolonged stay due to preeclampsia. Patient has exceeded 2 midnight stays. Coding Level of Care Code Acute Code for Chg Fwd Diagnoses Pre-eclampsia in third trimester O14.93 Trimester: third trimester Vaginal delivery O80
--- NOTE | 2024-12-06 08:00 | ANE.PACU2 ---
Inpatient post-anesthesia follow up: Airway intact: Yes Vital signs: Temperature 98.0 F Pulse Rate 72 Respiratory Rate 16 Blood Pressure 128/79 Pulse Oximetry 98 Oxygen Delivery Me thod Room Air Oxygen Flow Rate Fraction of Inspir ed Oxygen Hydration adequate: Yes Nausea and vomiting: No Pain level: 1 Mental status: Baseline Epidural Start/End: Epidural Start Date: 12/04/24 Epidural Start Time: 21:00 Epidural End Date: 12/05/24 Epidural End Time: 12:00
[2024-12-06] MEDS: ibuprofen 800 mg tablet PO ×2 (17:15→22:00)
[2024-12-06] MEDS: labetalol 200 mg Tablet 100 MG PO (17:15)
[2024-12-06] MEDS: docusate sodium 100 mg Capsule PO (17:15)
[2024-12-07] VITALS (11 sets, daily range): BP systolic 123–135; BP diastolic 72–99; PULSE 59–83; RESP 16; TEMP 36.7–36.8; O2SAT 97–98
--- NOTE | 2024-12-07 07:47 | P.PN_ITS ---
[employer] IN[employer]CTION Subjective 2 Subjective: Interval history: This is a 19-year-old G1, P1 that is post vaginal delivery day 2. Patient had completed 21 hours of mag. Patient received 1 dose of labetalol early in the course but has not received any since. Patient's blood pressure has been normal. Patient has no concerns today. Labor: Dilation (cm): 2 Station: +2 Amniotic Membrane Status: R uptured Monitor Mode: External Contraction Pattern: Irregular Uterine Tone Measurement: 40 Status: Category II Post /CS: Patient comments OB post-: no complaints [place] baby status: doing well and nursing well Vitals/I&O/Wt Last Vital Signs Temp 98.2 F 12/07/24 03:30 Pulse 72 12/07/24 05:55 Resp 16 12/07/24 04:00 BP 126/80 12/07/24 05:55 Pulse Ox 97 12/07/24 03:30 O2 Del Method Room Air 12/07/24 03:30 12/06/24 12/07/24 12/07/24 22:59 06:59 14:59 Intake Total 1500 / 1500 500 / 2000 Output Total 2150 / 3950 800 / 4750 Balance -650 / -2450 -300 / -2750 Physical Exam 2 Const: COMMON NORMALS: no acute distress, patient oriented x3, healthy appearing, alert and well nourished Neck/C-Spine: COMMON NORMALS: no JVD Resp: COMMON NORMALS: normal respiratory effort and No retractions Cardio: COMMON NORMALS: no JVD, regular rate and regular rhythm RATE: r egular rate RHYTHM: regular rhythm GI: OTHER: Uterus firm and below umbilicus Extremity: COMMON NORMALS: normal to inspection GENERAL: Yes edema (Trace) Neuro: COMMON NORMALS: patient oriented x3, moves all extremities, no focal motor deficits and no sensory deficits noted SENSORIUM/ORIENTATION: Yes alert Psych: COMMON NORMALS: mental status grossly normal, Normal thought process present, cooperative, normal affect and activity/motor behavior normal T HOUGHT PROCESS: Normal thought process present Skin: COMMON NORMALS: no rashes or lesions noted GENERAL SKIN EXAM: no rashes or lesions noted Urinary Catheter Management: Caballero: Cath Placed During This Visit: yes, but has since been removed by the nurse Reason for Continuing Indwelling Catheter: Accurate Measurement of Urinary Output in Critically Ill Patients Urinary Catheter Date of Insertion: 12/04/24 Urinary Catheter Time of Insertion: 22:14 Date Urinary Catheter Removed: 12/05/24 Time Urinary Catheter Discontinued: 09:30 Data 12/06/24 06:10 12/06/24 06:10 Micro: Microbiology 12/05/24 14:36 Urine Culture - Preliminary Urine,Clean Catch A&P Assessment and plan (1) Preeclampsia: We will continue to monitor post MAC. If she continues to do well we will discharge home. Continue labetalol Qualifiers: Trimester: third trimester Qualified Code(s): O14.93 - Unspecified pre- eclampsia, third trimester (2) Vaginal delivery: Continue routine care PDMP PDMP Reviewed: Not Reviewed Attestations 2 Medical Necessity Statement*: The patient was admitted for induction of labor and will have prolonged stay due to preeclampsia. Patient has exceeded 2 midnight stays. Coding Level of Care Code Acute Code for Chg Fwd Diagnoses Pre-eclampsia in third trimester O14.93 Trimester: third trimester Vaginal delivery O80
[2024-12-07] MEDS: ibuprofen 800 mg tablet PO ×2 (08:10→16:06)
[2024-12-07] MEDS: docusate sodium 100 mg Capsule PO ×2 (08:12→18:17)
[2024-12-07] MEDS: labetalol 200 mg Tablet 100 MG PO ×2 (08:12→18:17)
[2024-12-07] MEDS: PRENATAL VIT NO.130/IRON/FOLIC 1 EACH TABLET PO (08:12)
--- NOTE | 2024-12-07 17:17 | PM.OBGYDC ---
Discharge Providers MANAGER AGRICULTURE Date of Admission: 12/03/24 07:30 Date of Discharge: 12/07/24 Attending Provider at Admission: Farhat Mackenzie MD Attending Provider at Discharge: Farhat Mackenzie MD Primary Care Provider: Farhat Mackenzie MD Diagnoses at Discharge Discharge Diagnosis (1) Preeclampsia: Status: Acute Qualifiers: Trimester: third trimester Qualified Code(s): O14.93 - Unspecified pre-eclampsia, third trimester (2) Vaginal delivery: Status: Acute Reason for Visit Reason for Visit: IOL Hospital Course Hospital Course This is a 19-year-old that presented at 37 weeks 1 day for induction of labor. Patient underwent induction utilizing a combination of Cytotec and Pitocin. Patient had difficulty advancing in labor and this was due in part to nonreassuring heart tones. Patient did progressed to completion after artificial rupture membranes and placement of scalp electrode and intrauterine pressure catheter. Once patient was complete the patient delivered a viable female without difficulty. Patient did not have any significant perineal tear but had 1 periurethral tear that was repaired. Unfortunately after delivery the patient did develop severe blood pressure readings and was given a dose of IV labetalol and started on magnesium. The patient was on magnesium for approximately 21 hours. Patient tolerated the medication well and did not have any more elevated blood pressures. Patient did well after coming off of magnesium and had good pressures. Patient had no other concerning complications. Patient is breast-feeding well. Information Peripartum Data: Delivery Method: Vaginal Laceration description: Periurethral - 1st Degree Episiotomy description: None complications: other (Preeclampsia with severe features) Physical Exam Const: COMMON NORMALS: no acute distress, patient oriented x3, healthy appearing, alert and well nourished Neck/C-Spine: COMMON NORMALS: no JVD Resp: COMMON NORMALS: normal respiratory effort and No retractions Cardio: COMMON NORMALS: no JVD, regular rate and regular rhythm RATE: regular rate RHYTHM: regular rhythm GI: OTHER: Uterus firm and below umbilicus Extremity: COMMON NORMALS: normal to inspection GENERAL: Yes edema (Trace) Neuro: COMMON NORMALS: patient oriented x3, moves all extremities, no focal motor deficits and no sensory deficits noted SENSORIUM/ORIENTATION: Yes alert Psych: COMMON NORMALS: mental status grossly normal, Normal thought process present, cooperative, normal affect and activity/motor behavior normal THOUGHT PROCESS: Normal thought process present Skin: COMMON NORMALS: no rashes or lesions noted GENERAL SKIN EXAM: no rashes or lesions noted Urinary Catheter Management: Caballero: Cath Placed During This Visit: yes, but has since been removed by the nurse Reason for Continuing Indwelling Catheter: Accurate Measurement of Urinary Output in Critically Ill Patients Urinary Catheter Date of Insertion: 12/04/24 Urinary Catheter Time of Insertion: 22:14 Date Urinary Catheter Removed: 12/05/24 Time Urinary Catheter Discontinued: 09:30 Discharge Data Studies Completed and Pending Laboratory Results WBC 15.59 10^3/uL (4.5-13.0) H 12/06/24 06:10 RBC 3.37 10^6/uL (3.85-5.65) L 12/06/24 06:10 Hgb 9.90 g/dL (12.4-14.8) L 12/06/24 06:10 Hct 29.5 % (36-47) L 12/06/24 06:10 MCV 87.5 fl (85-98) 12/06/24 06:10 MCH 29.4 pg (27-33) 12/06/24 06:10 MCHC 33.6 g/dL (30-55) 12/06/24 06:10 RDW 13.1 % (12.1-15.1) 12/06/24 06:10 Plt Count 216 10^3/cmm (157-399) 12/06/24 06:10 MPV 10.8 fL (7.4-10.4) H 12/06/24 06:10 Neut % (Auto) 82.5 % 12/06/24 06:10 Lymph % (Auto) 10.0 % 12/06/24 06:10 [place] % (Auto) 6.2 % 12/06/24 06:10 Eos % (Auto) 0.2 % 12/06/24 06:10 Baso % (Auto) 0.2 % 12/06/24 06:10 Neut # (Auto) 12.87 10^3/uL (1.8-8.0) H 12/06/24 06:10 Lymph # (Auto) 1.6 10^3/uL (1.5-6.5) 12/06/24 06:10 [place] # (Auto) 1.0 10^3/uL (0.2-0.9) H 12/06/24 06:10 Eos # (Auto) 0.0 10^3/uL (0.0-0.8) 12/06/24 06:10 Baso # (Auto) 0.0 10^3/uL (0.0-0.1) 12/06/24 06:10 Nucleated RBC % (auto) 0 % 12/06/24 06:10 Nucleated RBCs # 0.0 /100WBC 12/06/24 06:10 Sodium 135 mmol/L (136-145) L 12/06/24 06:10 Potassium 3.9 mmol/L (3.5-5.1) 12/06/24 06:10 Chloride 107 mmol/L (98-107) 12/06/24 06:10 Carbon Dioxide 18 mmol/L (22-29) L 12/06/24 06:10 Anion Gap 13.9 (5-19) 12/06/24 06:10 BUN 6 mg/dL (6-20) 12/06/24 06:10 Creatinine 0.8 mg/dL (0.5-0.9) 12/06/24 06:10 GFR Calculation 91.4 mL/min (90-130) 12/06/24 06:10 Glucose 84 mg/dL (65-115) 12/06/24 06:10 Calculated Osmolality 277 mOsm/kg (285-295) L 12/06/24 06:10 Uric Acid 6.8 mg/dL (2.4-5.7) H 12/06/24 06:10 Calcium 8.1 mg/dL (8.5-10.5) L 12/06/24 06:10 Total Bilirubin 0.4 mg/dL (0.15-1.2) 12/06/24 06:10 AST 56 U/L (0-32) H 12/06/24 06:10 ALT 92 U/L (0-33) H 12/06/24 06:10 Alkaline Phosphatase 333 U/L (35-105) H 12/06/24 06:10 Total Protein 5.3 g/dL (6.6-8.7) L 12/06/24 06:10 Albumin 2.3 g/dL (3.5-5.2) L 12/06/24 06:10 Globulin 3.0 g/dL (1.3-4.6) 12/06/24 06:10 Urine Color Yellow (Yellow) 12/06/24 06:13 Urine Appearance Clear (CLEAR) 12/06/24 06:13 Urine pH 6.0 (5-7) 12/06/24 06:13 Ur Specific [place] 1.010 (1.005-1.030) 12/06/24 06:13 Urine Protein Trace (Negative) A 12/06/24 06:13 Urine Glucose (UA) Negative (Normal) 12/06/24 06:13 Urine Ketones Negative (Negative) 12/06/24 06:13 Urine Blood Negative (Negative) 12/06/24 06:13 Urine Nitrate Negative (Negative) 12/06/24 06:13 Urine Bilirubin Negative (Negative) 12/06/24 06:13 Urine Urobilinogen 1.0 mg/dL (Negative) 12/06/24 06:13 Ur Leukocyte Esterase Trace (Negative) A 12/06/24 06:13 Urine RBC 0-2 /hpf (0-2) 12/06/24 06:13 Urine WBC 11-20 /hpf (0-5) H 12/06/24 06:13 Ur Squamous Epith Cells 0-5 /hpf (0-5) 12/06/24 06:13 Amorphous Sediment Not Reportable 12/06/24 06:13 Urine Bacteria None seen /hpf (NONE) 12/06/24 06:13 Hyaline Casts 0.81 /lpf 12/06/24 06:13 U Random Total Protein 21 mg/dL 12/06/24 06:13 Urine Creatinine 82 mg/dL (28-217) 12/06/24 06:13 Protein/Creatinin Ratio 0.26 mg/mg CR 12/06/24 06:13 Urine Opiates Screen Negative ng/mL (Negative) 12/02/24 15:30 Ur Barbiturates Screen Negative ng/mL (Negative) 12/02/24 15:30 Ur Phencyclidine Scrn Negative ng/mL (Negative) 12/02/24 15:30 Ur Amphetamines Screen Negative ng/mL (Negative) 12/02/24 15:30 U Benzodiazepines Scrn Negative ng/mL (Negative) 12/02/24 15:30 Urine Cocaine Screen Negative ng/mL (Negative) 12/02/24 15:30 U Marijuana (THC) Screen Negative ng/mL (Negative) 12/02/24 15:30 Blood Type O Positive 12/02/24 15:45 Rho(D) Type Rh positive 12/02/24 15:45 Antibody Screen Negative 12/02/24 15:45 Vitals Last Vital Signs Temp 98.0 F 12/07/24 10:35 Pulse 78 12/07/24 16:01 Resp 16 12/07/24 04:00 BP 135/99 12/07/24 16:01 Pulse Ox 97 12/07/24 03:30 O2 Del Method Room Air 12/07/24 16:01 Results Labs OB ([facility]): Obstetrics US/Biophysical Profile 11/30/24 Blood Type O Positive 12/02/24 Antibody Screen Negative 12/02/24 Hct 29.5 % (36-47) L 12/06/24 Hgb 9.90 g/dL (12.4-14.8) L 12/06/24 Rho(D) Type Rh positive 12/02/24 Plt Count 216 10^3/cmm (157-399) 12/06/24 Uric Acid 6.8 mg/dL (2.4-5.7) H 12/06/24 Ser , Semi-Qnt 084293.00 mIU/mL 06/20/24 Urine Opiates Screen Negative ng/mL (Negative) 12/02/24 Ur Barbiturates Screen Negative ng/mL (Negative) 12/02/24 Ur Phencyclidine Scrn Negative ng/mL (Negative) 12/02/24 Ur Amphetamines Screen Negative ng/mL (Negative) 12/02/24 U Benzodiazepines Scrn Negative ng/mL (Negative) 12/02/24 Urine Cocaine Screen Negative ng/mL (Negative) 12/02/24 U Marijuana (THC) Screen Negative ng/mL (Negative) 12/02/24 Micro Urine Specimen 12/05/24 Discharge Plan Discharge Patient Disposition: Home Condition: Stable Prescriptions: New labetalol 100 mg tablet 100 mg PO BID 30 Days Qty: 60 1RF Continued Vitamin Plus Low Iron 27 mg iron- 1 mg tablet 1 tab PO DAILY Discharge Orders: Discharge Order (Routine); Ordered 12/07/24 Ordered By: Farhat Mackenzie Referrals: Farhat Mackenzie MD [Primary Care Provider] - 01/18/25 11:15 am Discharge Diet: Usual diet Discharge Activity: Limit activity as instructed Patient Instructions: Depression (DC), Opioid Safety (DC), Preeclampsia and Eclampsia After Delivery (GEN), Hemorrhage (DC), OB Discharge Report, OB Food/Drug Interaction Guide, OB Care at Home, Opioid Safety, OB Vaginal Deliveries, Abnormal Bleeding Discharge Attestations MANAGER [employer]IC[employer]URE Time Spent in Discharge Care*: less than 30 min Coding Level of Care Code Acute Code for Chg Fwd Diagnoses Pre-eclampsia in third trimester O14.93 Trimester: third trimester Vaginal delivery O80
== END 2024-12-07 19:00 | disposition home or self-care (01) | DRG 807 ==
LOC: OBGYN 20:13
PROVIDERS: Admitting Provider Family Medicine; PCP Family Medicine; Visit Provider Family Medicine
DX: O14.04 Mild to moderate pre-eclampsia, complicating childbirth (principal); Z37.0 Single live birth; O76 Abnormality in fetal heart rate and rhythm complicating labor and delivery; O71.82 Other specified trauma to perineum and vulva; Z3A.37 37 weeks gestation of pregnancy; O14.15 Severe pre-eclampsia, complicating the puerperium
CPT/HCPCS: 36415; 51702; 59025; 59409; 80053; 80306; 81001; 82570; 84156; 84550; 85025; 86850; 86900; 87086; 96372; 99211; G0378; J2590; J2795; J3105; J3475; J3490; J7030; J7121; J9999

== ENCOUNTER 2025-04-06 22:01 | Emergency (ER) | payer MEDICAID, SELFPAY ==
--- OUTSIDE RECORDS SUMMARY | 2020-04-04 05:54 | XMS_ITS | Continuity of Care Document ---
Author Organization [facility] Address [address] [place] [address] Phone Care Team Providers Care Precinct Captain Name Role Phone Lisa PICKETT CPNP-PC, Selina Unavailable Unava ilable Allergies, Adverse Reactions, Alerts Substance Reaction Status Criticality No Known Allergies Active No Inform ation Medications Medication Instructions Dosage Effective Dates (start - stop) Status Comments ProAir HFA 90 mcg/actuation aerosol inhaler inhale 2 puff by inhalation route every 4 - 6 hours as needed - Active sertraline 25 mg tablet take 1 tablet by oral route every day 25 MG - Active prazosin 2 mg capsule take 1 capsule by oral route every day 2 MG - Active fluoxetine 10 mg capsule take 1 Capsule by oral route every day 10 MG - Active prazosin 2 mg capsule take 1 capsule by oral route every day 2 MG - Active sertraline 25 mg tablet take 1 tablet by oral route every day 25 MG - No Longer Active fluoxetine 10 mg capsule take 1 Capsule by oral route every day 10 MG - No Longer Active cephalexin 500 mg capsule take 1 capsule by oral route every 6 hours 500 MG - No Longer Active prazosin 2 mg capsule take 2 capsule by oral route every day 4 MG - No Longer Active Procedures Procedure Date DESTRUCT B9 LESION, 1-14 OFFICE/OUTPATIENT VISIT, NEW IMMUNIZATION ADMIN VFC-MENB RP W/OMV VACCINE IM IMMUNIZATION ADMIN, EACH ADD VFC HPV VACCINE NON VALENT IM 0 IMMUNIZATION ADMIN, EACH ADD VFC HEP A VACC, PED/ADOL, 2 DOSE 2019 IMMUNIZATION ADMIN, EACH ADD VFC MENINGOCOCCAL VACCINE, IM 0 Results Test Name Date and Time Measure Units Reference Range Abnormal Flag Status Comments Panel Description: Chlamydia/GC Amplification F inal Chlamydia trachomatis, BRITTNEY 23:04:00 Negative Negative Final Performed by:[facility] [place] ([employer]) Neisseria gonorrhoeae, BRITTNEY 23:04:00 Negative Negative Final Performed by:[employer] ([employer]) Panel Description: Urine Final Urine Test negative Final Advance Directives Directive Yes / No Effective Date File Name No Information Encounters Encounter Description Practice Location Reason(s) For Visit Diagnoses Date Provider Providers Copied on Encounter OFFICE/OUTPAT IENT VISIT, [facility], [address], [place], [place], [id number], [place] tel:[phone] Pediatrics physical (chief complaint) Unspecified asthma, uncomplicatedBMI pediatric, 85% to less than 95th percentile for ageOther viral wartsHigh risk sexual behavior in adolescentADHD (attention deficit hyperactivity disorder), combined typeGAD (generalized anxiety disorder)Physical exam 0 Lisa Marks. [address] [place], [address], [place]. tel:[phone] Family History Family Member Type Diagnosis Age At Onset Mother Problem migraine Father Problem migraine Mother Problem Alive and well Mother Problem attention deficit hyperactiv ity disorder Father Problem Alive and well Immunizations Vaccine Date Status Comments Menactra Meningococcal administered Sourc e: New Immunization Record Hep A (ped/adol, 2 dose) administered Yolanda rce: New Immunization Record Gardasil, 9 valent administered Source: N ew Immunization Record Meningococcal B, 2 dose administered Sour ce: New Immunization Record Influenza, quadrivalent, spl it virus, preserve free administered Source: Other Papito try Influenza, quadrivalent, spl it virus, preserve free administered Source: Other Papito try Influenza, quadrivalent, spl it virus, preserve free administered Source: Other Papito try Tdap administered Source: Other R egistry IPV administered Source: Other P rovider Menactra Meningococcal administered Sourc e: Other Provider ProQuad (MMRV) administered Source: Other Provider Hep A (ped/adol, 2 dose) administered Yolanda rce: Other Provider DTaP administered Source: Other P rovider Hep B (ped/adol, 3 dose) administered Yolanda rce: Other Registry Haemophilus influenzae type b vaccine, conjugate unspecified formulation administered Source: Other Provid er DTaP administered Source: Other P rovider IPV administered Source: Other P rovider varicella virus vaccine, nan e SQ administered Source: Other Provid er MMR administered Source: Other P rovider Prevnar 13 valent administered Source: Ot her Provider Prevnar 13 valent administered Source: Ot her Provider Haemophilus influenzae type b vaccine, conjugate unspecified formulation administered Source: Other Provid er Infanrix administered Source: Other P rovider Hep B (ped/adol, 3 dose) administered Yolanda rce: Other Registry IPV administered Source: Other R egistry Prevnar 13 valent administered Source: Ot her Provider Haemophilus influenzae type b vaccine, conjugate unspecified formulation administered Source: Other Provid er DTaP administered Source: Other P rovider Pneumo (under 5) (PCV7) administered Sour ce: Other Provider Haemophilus influenzae type b vaccine, conjugate unspecified formulation administered Source: Other Provid er Pediarix administered Source: Other P rovider Hep B (ped/adol, 3 dose) administered Yolanda rce: Other Provider Payers Payer name Insurance type Covered democrat ID Authoriza tion(s) [employer] [facility] [employer] MCO MC [id number] [employer] [facility] MC [id number] [employer] [facility] MC [id number] [employer] [facility] MC [id number] [employer] MCO MC [id number] Social History Type Description Quantity Date Captured Comments Alcohol Use Details Unknown Caffeine Use Details Unknown Tobacco Use Status Ex-cigarette smoker 020 Smoking Status Former smoker Smoking Tobacco Use Details Cigarette: No Details Available Cigarette: 1 Cigarettes per day Sex Female Sexual Orientation Straight or heterosexual Gender Identity Female Vital Signs Date / Time: Height Weight BMI Pulse Rate Blood Pressure Temperature Respiratory Rate Body Surface Area Head Circumference Head Circ. Percentile Wt./Girma. Percentile BMI percentile Pulse Ox Inhaled Ox 11:18 AM 59.50 in 67.495 kg (148.80 lbs) 29.5 5 kg/m eter (2) 70 /min 96/58 mm[Hg] 98.30 F 18 /min 95 98 % Chief Complaint And Reason For Visit From encounter dated '04/04/2020 10:54'. physical (chief complaint). Description: The symptoms are reported as being mild. She states the symptoms are acute. Was living with mother before placement, had not been with mother very long. Before that was with Aunt June. 10th grade this fall. Been at [facility] for 1 week. Has been hospitalized a t least 7 times, mostly for behavior-related issues. Currently states her mood is stable and she isdoing well with current medications. No current suicidal ideation or self harm. Was receiving counseling at [facility] via telehealth. Last visit was 02/23/20. Pt states she is sexually active and uses condoms as protection. Reason For Referral Reason For Referral No Information Plan Of Treatment Date Type Action Status Goal PPD (TST). Due on 0 due Goal Depression screening. Due on due Goal Prevnar 13 due Goal Influenza vaccine. Due on Oc due Goal Pneumococcal, 23 valent due Goal Fluoride. Due on due Goal Pneumococcal vaccine due Goal HPV (1st) due Goal Lifestyle education regardin g diet completed History Of Present Illness Encounter Date Complaint History Of Mela nt Illness physical The symptoms are reported as being mild. She states the symptoms are acute. Was living with mother before placement, had not been with mother very long. Before that was with Aunt June. 10th grade this fall. Been at [facility] for 1 week. Has been hospitalized at least 7 times, mostly for behavior-related issues. Currently states her mood is stable and she is doing well with current medications. No current suicidal ideation or self harm. Was receiving counseling at [facility] via telehealth. Last visit was 02/23/20. Pt states she is sexually active and uses condoms as protection. Functional Status Date Functional Assessmen t No Information Instructions Date Instruction Additional Infor karen - Well appearing on exam. Growth and development appropriate.- Try to choose healthy foods and limit sugary drinks. - Get at least 1 hour of physical activity every day. - Contact the office with any questions or concerns. Related to Physical exam - Take medication as prescribed. Related to JESIKA (generalized anxiety disorder) - Will notify with tamie garcia. - Safe sex education given. Related to High risk sexual behavior in adolescent - Keep area clean, m ay apply bandaids as needed. - May start OTC wart removal after 3 days, use nail file before applying drops. - Follow up in 2-3 weeks for repeat therapy if warts not resolved. Related to Other viral warts - ProAir inhaler sen t to pharmacy to use as needed. Related to Unspecified asthma, uncomplicated Giving encouragement to exercise Related to Body mass index (BMI) pediatric, 85th percentile to less than 95th percentile for age Lifestyle education regarding di et Related to Body mass index (BMI) pediatric, 85th percentile to less than 95th percentile for age Assessments Type Assessment Date assessment Unspecified asthma, uncomplicate d assessment BMI pediatric, 85% to less than 95th percentile for age assessment Other viral warts assessment High risk sexual behavior in ado lescent assessment ADHD (attention deficit hyperact ivity disorder), combined type assessment JESIKA (generalized anxiety disorde r) assessment Physical exam impression - History of asthma. Uses an inh aler as needed, not very often impression - Wart on left thumb , has been burned off in the past and pt states it came back - Has not been using OTC tx. agreed to cryotherapy today - Cryotherapy used for 10 sec x3 to wart, pt tolerated without discomfort impression - Pt reports being s exually active- Will check GC/Chlamydia and today impression - Hx of ADHD dx per records impression - Hx of JESIKA per records 020 impression - Physical for placement at [facility] 1 week ago Mental Status Date Cognitive Assessment Orientation - [place] ed to time, place, person, situation. Patient Care Teams Name Effective Dates (start - stop) Status Members No Information
--- OUTSIDE RECORDS SUMMARY | 2021-04-22 19:00 | XMS_ITS | Continuity of Care Document ---
Author Organization [facility] Address [address] [place] [address] Phone Care Team Providers Care Associate Team Physician Name Role Phone Emanuel ANA Veronica Unavailable Unavailable Procedures Procedure Date Periodic Oral Evaluation- Established Pa tient Prophylaxis - Adult Topical Application Of Fluoride Varnish Comprehensive Oral Evaluation - NPX Prophylaxis - Adult Bitewings - Four Radiographic Images Sep Topical Application Of Fluoride Varnish Panoramic Radiographic Image Advance Directives Directive Yes / No Effective Date File Name No Information Encounters Encounter Description Practice Location Reason(s) For Visit Diagnoses Date Provider Providers Copied on Encounter [facility], [address] [place], [place], [id number], tel:[phone] [facility] No Information Emanuel Melissaily. [address] [place] [address], [id number], [place]. tel:[phone] Referring Provider: Veronica Castellanos, [address] [place] [address], [id number] . tel:[phone] [facility], [address] [place], [place], [id number], tel:[phone] [facility] No Information Emanuel Martin. [address] [place] [address], [id number], [place]. tel:[phone] Referring Provider: Veronica Castellanos, [address] [place] [address], [id number] . tel:[phone] Family History Family Member Type Diagnosis Age At Onset No Information Payers Payer name Insurance type Covered republican ID Authorvictorino shearer(s) [employer] [id number] Social History Type Description Quantity Date Captured Comments Sex Female Smoking Status No Information Sexual Orientation Straight or heterosexual Gender Identity Female Chief Complaint And Reason For Visit No Information Reason For Referral Reason For Referral No Information History Of Present Illness Encounter Date Complaint History Of Prese nt Illness No Information Functional Status Date Functional Assessmen t No Information Instructions Date Instruction Additional Infor mation No Information Assessments Type Assessment Date No Information Patient Care Teams Name Effective Dates (start - stop) Status Members No Information
[2025-04-06 22:04] VITALS: BP 113/74; PULSE 73; RESP 14; TEMP 36.8; O2SAT 100; BMI 31.2
[2025-04-06 22:48] VITALS: PULSE 69; O2SAT 93
--- NOTE | 2025-04-06 22:56 | XRR_ITS ---
PROCEDURE INFORMATION: Exam: XR Lumbosacral Spine Exam date and time: 04/06/2025 11:06 PM Age: 20 years old Clinical indication: Injury or trauma; Fall; Blunt trauma (contusions or hematomas); Additional info: Fall, back pain TECHNIQUE: Imaging protocol: Radiologic exam of the lumbosacral spine. Views: 2 or 3 views. COMPARISON: US OB BPP wo NST [id number] 11/30/2024 11:40 AM FINDINGS: Bones/joints: [id number] L5/S1 disc space narrowing. Soft tissues: Unremarkable. XR/XR lumbar spine 2-3V* [id number] IMPRESSION: 1. Negative for fracture dislocation, consider further evaluation with a CT if concern for fracture remains clinically. 2. Ovxj-vj-mpbmicmi L5/S1 disc space narrowing.
[2025-04-06 23:13] LABS: HCG Qualitative Urine. Negative (Negative)
--- NOTE | 2025-04-06 23:26 | ED_ITS ---
HPI - Fall General: Chief Complaint: Fall Stated Complaint: fall from ladder Time Seen by Provider: 04/06/25 22:41 Source: patient Mode of arrival: ambulatory Limitations: no limitations History of Present Illness: 20yo female presents with friend for gonzalo luation of low back pain that radiates down her legs. States she had a slip and fall today around 1700. [place] ladder, and hit her low back on the edge of the pool. Reports pain across the low back and radiating into her legs. States that she did begin feeling the pain almost immediately. Reports that she did take diclofenac and Tylenol with no improvement. Reports her pain is 10/10. Patient states there is a possibility of . She denies any other concerns at this time. Associated symptoms-after fall: Denies abdominal pain Related Data Home Medications ?Medication ?Instructions ?Recorded ?Confirmed vitamin with calcium 1 tab PO DAILY 12/06/24 12/06/24 no.72-iron 27 mg-folic acid 1 mg tablet ( Vitamins Plus Low Iron) Previous Rx's ?Medication ?Instructions ?Recorded labetalol 100 mg tablet 100 mg PO BID 30 days #60 ta bs 12/07/24 methocarbamol 500 mg tablet 500 mg PO QID PRN muscle p ain #20 04/07/25 tabs Allergies Allergy/AdvReac Type Severity Reaction Status Date / Time No Known Allergies Allergy Verified 04/06/25 22:08 Review of Systems Const: Denies: fever(s), chills or body aches GI: Denies: abdominal pain or vomiting Musc: Reports: back pain [facility] PFSH: Medical History (Updated 04/07/25 @ 00:15 by ALFONSO Feliciano) Vaginal delivery Non-reassuring heart tones complicating , antepartum 37 weeks gestation of Chest wall pain, chronic Well adult health check Surgical History No pertinent past surgical history Family History Father No problems noted. Mother Bicuspid aortic valve Social History Smoking and tobacco/nicotine status: former use of tobacco/nicotine Quit status (tobacco/nicotine): has quit using Second hand smoke exposure: No Alcohol intake: never Substance/Drug Use: never Current gender identity: Female Female Reproductive History: Date of last menstrual period: 03/16/25 Physical Exam Const: COMMON NORMALS: no acute distress, patient oriented x3 and alert GENERAL APPEARANCE: cooperative ORIENTATION/CONSCIOUSNESS: Yes awake OTHER: Patient is sitting upright on the stretcher no acute distress. She is able to give history with no difficulty. She is interactive with exam appropriately. Family is at bedside HENMT: COMMON NORMALS: normocephalic and atraumatic HEAD & SCALP: normocephalic and atraumatic Chest: CHEST: Yes Symmetrical chest wall rise Resp: COMMON NORMALS: normal respiratory effort EFFORT & INSPECTION: Yes able to speak in complete sentences Back/Pelvis: LUMBAR SPINE/LOWER BACK: Yes normal to inspection, Yes lumbar spinal tenderness Lumbar spinal tenderness location: L4 and L5 and Yes paraspinal muscle tenderness Lumbar paraspinal muscle tenderness: bilateral Bilateral lumbar paraspinal muscle tenderness: L4 and L5 Extremity: NARRATIVE EXTREMITY EXAM: Back pain elicited with movements bilateral legs Neuro: COMMON NORMALS: patient oriented x3 and moves all extremities SENSORIUM/ORIENTATION: Yes alert Psych: COMMON NORMALS: cooperative Course Vital Signs: Vital signs: Vital Signs Temperature 98.2 F 04/06/25 22:04 Pulse Rate 69 04/06/25 22:48 Respiratory Rate 14 04/06/25 22:04 Blood Pressure 113/74 04/06/25 22:04 Pulse Oximetry 93 04/06/25 22:48 Oxygen Delivery Me thod Room Air 04/06/25 22:04 MDM - Fall Medical Decision Making 20yo female presents with friend for evaluation of low back pain that radiates down her legs. States she had a slip and fall today around 1700. She did take acetaminophen and diclofenac with no improvement. Denies any other injury or concern at this time. Patient states there is a possibility of . Patient is nontoxic in appearance. Vital signs are stable. No cauda equina symptoms. Urine test is negative. No fracture or dislocation noted on the lumbar spine x-ray. Mild to moderate L5/S1 disc space narrowing noted. Discussed findings with patient. Patient to receive ketorolac and orphenadrine while in the emergency department. She does have a flatbed driver and someone to help her with her child tonight. Patient is not breast- feeding. Short course methocarbamol sent to patient's pharmacy, sedation precautions provided. Advised she continue with [id number] ibuprofen to help with the inflammation. Activity modification discussed. Recommend follow- up with primary care, call Friday with an update of symptoms and to discuss a recheck. Return precautions provided. Patient states understanding and has no further questions or concerns at this time. Lab Data I reviewed the patient's lab results. Radiology Impressions Lumbar Spine X-Ray 04/06/25 22:56 IMPRESSION: 1. Negative for fracture dislocation, consider further evaluation with a CT if concern for fracture remains clinically. 2. Ekbo-js-zrrbnnuo L5/S1 disc space narrowing. Laboratory Results HCG, Qual Negative (Negative) 04/06/25 23:08 All radiology interpretation(s) finalized by discharge Discharge Plan Discharge Patient Disposition: Home Clinical Impression: Low back pain radiating to both legs, Fall against object Condition: Stable Prescriptions: New methocarbamol 500 mg tablet 500 mg PO QID PRN (Reason: muscle pain) Qty: 20 0RF No Action Vitamin Plus Low Iron 27 mg iron- 1 mg tablet 1 tab PO DAILY labetalol 100 mg tablet 100 mg PO BID 30 Days Qty: 60 1RF Discharge Orders: Discharge ED (Routine); Ordered 04/07/25 Ordered By: Manjinder Montenegro Referrals: Farhat Mackenzie MD [Primary Care Provider, [facility]] Discharge Diet: Usual diet Discharge Activity: Increase activity as tolerated Patient Instructions: Acute Low Back Pain (ED), Lower Back Exercises (ED), Pain Management, Patient Portal & Didi Instructions Activity Restrictions/Additional Instructions: No fracture or acute bony abnormality noted on the x-rays today. Your test was negative You did receive anti-inflammatories and muscle relaxer while in the emergency department. A prescription of methocarbamol (muscle relaxer) has been sent to your pharmacy to help with muscle spasms and muscle pain. Please continue with [id number]-[id number] ibuprofen and acetaminophen to help with pain Try to avoid bending and heavy lifting for the next couple of days, activity as tolerated Follow-up with primary care, call Friday with an update of symptoms and to discuss a recheck Return to the emergency department if any further injury, rapid worsening symptoms, groin numbness/tingling, lower extremity weakness, incontinence, and as needed. Print Language: Syrian Coding Level of Care Code ED No Bake Molder for Rao Patel
[2025-04-07] MEDS: orphenadrine 30 mg/mL Inj 2 mL 60 MG IM (00:28)
[2025-04-07 00:51] VITALS: BP 91/66; PULSE 61; O2SAT 98
== END 2025-04-07 00:52 | disposition home or self-care (01) ==
PROVIDERS: Emergency Provider Nurse Practitioner; PCP Family Medicine
DX: M54.42 Lumbago with sciatica, left side (principal); M54.41 Lumbago with sciatica, right side; Y92.34 Swimming pool (public) as the place of occurrence of the external cause; Z87.891 Personal history of nicotine dependence; W11.XXXA Fall on and from ladder, initial encounter
CPT/HCPCS: 72100; 81025; 96372; 99284; J1885; J2360